=== PATIENT | male | born 1950 | race Caucasian/White ===

== ENCOUNTER 2016-08-13 08:29 | Inpatient (IN) ==
--- NOTE | 2016-08-13 08:47 | Anesthesia Evaluation PreOp ---
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 Other Medical History: Diabetes Type II Anesthesia History: No Prior Anesthetic Complications, Past Anesthesia (07/31/16 - Iliac revascularization with stent) Alcohol Use: occasionally Drug use: none Medications and Allergies Amlodipine [Norvasc] 5 mg PO DAILY 01/12/16 [History] Clopidogrel [Plavix] 75 mg PO DAILY 01/12/16 [History] GlipiZIDE [Glucotrol] 5 mg PO BIDWM 01/12/16 [History] Isosorbide MONOnitrate (24 HR) [Imdur] 90 mg PO DAILY 01/12/16 [History] Lisinopril [Zestril] 5 mg PO DAILY 01/12/16 [History] Nitroglycerin [Nitrostat] 0.4 mg SL Q5M PRN 01/12/16 [History] Pantoprazole Sodium [Protonix] 40 mg PO DAILY 01/12/16 [History] Rosuvastatin [Crestor] 30 mg PO DAILY 01/12/16 [History] Aspirin 81 mg PO DAILY 07/31/16 [History] Loratadine [Allergy Relief] 10 mg PO DAILY 07/31/16 [History] Metformin HCl [Glucophage] 1,000 mg PO BID 08/13/16 [History] Allergies No Known Allergies Allergy (Verified 08/13/16 08:54) - Meds/Allergy Pre-op Review Medications Reviewed: Yes Allergies Reviewed: Yes Beta Blockers on Current Med List: Yes If Beta Blockers taken, Date/Time (Last Dose taken): 06:30 08/13/2016 Anesthesia Results - Labs Laboratory Tests 07/25/16 07/25/16 07/25/16 11:00 11:00 11:00 WBC 9.9 Hgb 12.8 L Hct 38.8 Plt Count 421 H INR 1.3 Sodium 135 L Potassium 4.2 Chloride 101 Carbon Dioxide 25 BUN 9 Creatinine 0.81 Echo 01/13/16 EF - 60% Mod LV diastolic dysfunction No sig. Valvular dx No pulm. HTN - Imaging EKG: image reviewed (SR with occ. ectopic premature complexes) Anesthesia Exam O2 Sat Height 1.63 m Height 1.63 m Weight 72.121 kg Weight 72.121 kg O2 Sat by Pulse Oximetry 99 O2 Sat by Pulse Oximetry 99 Vital Signs Temp Pulse Resp BP Pulse Ox 98.2 F 64 18 118/66 99 08/13/16 09:36 08/13/16 09:36 08/13/16 09:36 08/13/16 09:36 08/13/16 09:36 Height: 5'4'' Weight: 159# NPO (# of Hours): > 8 hrs Pain Scale: 0 Pain Scale Used: Numeric (1 - 10) - HEENT Pupil (Motor): Pupils equal, EOMI Mallampati: II Teeth: Edentulous Denture Type: Upper: Complete, Lower: Complete Oral Opening: Greater than 3 - STOCK PREPARATION OPERATOR LOC: Oriented STOCK PREPARATION OPERATOR Motor: Normal RUE, Normal LUE, Normal RLE, Normal LLE, Normal Face STOCK PREPARATION OPERATOR Sensory: Normal: RUE, LUE, RLE, LLE, Face - Cardiac Rhythm: Regular Murmur: None JVD: No Carotid Bruit: No - Pulmonary Breath Sounds: bilateral Clear Respiratory Effort: Symmetrical Anesthesia Assess/Plan ASA Score: 3 Modified [place] Scale for Level of Consciousness: Cooperative, oriented, and tranquil Anesthetic Plan: General Autologous Blood: Yes Monitoring Plan: Standard Monitors, A-Line Recovery Plan: PACU
[2016-08-13] MEDS ORDERED: *HR* FentaNYL (PF) 100 MCG/2 ML VIAL ONE (09:23)
[2016-08-13] MEDS ORDERED: *HR* Propofol 200 MG/20 ML VIAL IVP ONE (09:23)
[2016-08-13] MEDS ORDERED: *HR* Midazolam HCl 2 MG/2 ML VIAL ONE (09:23)
[2016-08-13] MEDS ORDERED: Lidocaine -MPF 2% 2 ML VIAL ONE (09:24)
[2016-08-13] MEDS ORDERED: *HR* Remifentanil 2 MG VIAL IVP ONE ×2 (09:24→13:31)
[2016-08-13] MEDS ORDERED: EPHEDrine 50 MG/ML VIAL ONE (09:24)
[2016-08-13] MEDS ORDERED: Albuterol 2.5 MG/3 ML NEBULIZER IH ONE (09:27)
[2016-08-13] MEDS ORDERED: Lidocaine -MPF 1% 2 ML VIAL ID ONE (09:27)
[2016-08-13] MEDS ORDERED: CeFAZolin Pre 2,000 MG/100 ML 2,000 MG/100 ML BAG IVPB ONE (09:27)
[2016-08-13] MEDS ORDERED: Albuterol 2.5 MG/3 ML NEBULIZER ONE (09:32)
[2016-08-13] MEDS: Ringers Solution, Lactated 1,000 ML IVC SCH ×2 (09:35→15:39)
[2016-08-13] MEDS ORDERED: Heparin 1,000 UNITS/500 mL NS 500 ML ONE (10:27)
[2016-08-13] MEDS ORDERED: Heparin 1,000 UNITS/500 mL NS 1,500 ML ONE (10:48)
--- NOTE | 2016-08-13 10:51 | History & Physical Report ---
Date of Encounter: 08/13/16 Time of Encounter: 10:51 24 Hour HP Update - Instructions Instructions: If the History and Physical is less than 30 days old and was completed prior to A.M. admission and or procedure and has NOT been updated on calendar day of procedure please complete this update prior to performing procedure. - Update Patient reports changes in Medical Condition: No Changes in examination, assessment, or condition: No Changes in Medication: No Preop tests/diagnostics Reviewed: Yes Surgery Remains Indicated: Yes Consent for Planned Operative Procedure(s) Verified: Yes - Pre-Operative Checklist Preoperative Checklist Indicated: Yes Prophylactic Antibiotic Ordered: Yes Home Medications Include Beta Gabriela: No Beta Gabriela Taken Today (Day of Surgery): No Beta Gabriela Taken Yesterday (Day Prior to Surgery): No Is VTE Prophylaxis Indicated?: Yes
[2016-08-13] MEDS ORDERED: Lidocaine Jelly 6 ml Syringe ONE (11:29)
[2016-08-13] MEDS ORDERED: *HR* Heparin 5,000 UNIT/ML VIAL ONE ×2 (12:10→13:01)
[2016-08-13] MEDS ORDERED: Lidocaine -MPF 4% 5 ML AMPUL ONE (13:35)
[2016-08-13] MEDS ORDERED: Neostigmine Methylsulfate 3 MG/3 ML SYRINGE ONE (14:34)
[2016-08-13] MEDS ORDERED: Ondansetron 4 MG/2 ML VIAL ONE (14:37)
[2016-08-13] MEDS ORDERED: Dexamethasone 4 MG/ML VIAL ONE (14:37)
--- NOTE | 2016-08-13 14:46 | Operative Note ---
Date of procedure: 08/13/16 Pre-op diagnosis: pad/claudication Post-op diagnosis: same Procedure: left iliofemoral endarterectomy with Hemashield patch angioplasty left SFA balloon angioplasty with 5 x 150 mm balloon Complications: none Anesthesia: GETA Surgeon: Bunny Dietrich Estimated blood loss (cc): 250 Specimen: none Condition: stable Disposition: PACU Procedure in Detail: History Juan Khan is a 66-year-old white male who complained of bilateral lower extremity pain. [facility] He was found to have abnormal noninvasive testing. He then went on to have an angiogram approximately 2 weeks ago. This demonstrated severe bilateral common iliac artery disease and a near occlusive plaque in the left common femoral artery. In addition there was stenosis in the left superficial femoral artery. The iliac artery disease was successfully stented with rheumatic improvement of his right lower extremity symptoms. He now comes to the operating room for correction of the left common femoral artery lesion and to perform a balloon angioplasty of the superficial femoral artery. Procedure After informed consent was obtained the patient was taken to the operating room. General endotracheal anesthesia was established. The left lower extremity was then sterilely prepped and draped. A timeout protocol was observed. An oblique incision was made in the left groin. Dissection was carried down to reveal the common femoral artery as well as the femoral artery bifurcation and the inguinal ligament. The vessel was extremely thick and dense and affected with calcific-like plaque. Controls obtained of all the vessels. Heparin was administered intravenously and a dose of 5000 units. After a three-minute delay the vessels were clamped and 11 blade knife and Muñoz scissors were used to open the common femoral artery on its anterior border. This was continued distally onto the proximal 1-2 cm of the superficial femoral artery. It was extended proximally to the level of the inguinal ligament. The plaque encountered was a very dramatic thick dense calcific material. There is very little lumen present. A formal endarterectomy was then performed of the entire length of the common femoral artery. The endarterectomy was carried proximally up into the external iliac artery. A large mass of atherosclerotic material was removed with significant improvement in the pulsatile flow through the vessel from an inflow perspective. Attention was then directed distally. The orifice of the profunda femoris artery was endarterectomized. Excellent backbleeding was noted. The endarterectomy was then carried distally onto the superficial femoral artery. Back bleeding was noticed here as well. The bed of the vessels and inspected for any residual debris. A patch angioplasty was then performed in order to reconstruct the common femoral artery and proximal superficial femoral artery. A Hemashield patch was used and was sewn in position using 2 6- 0 Prolene sutures. The Vesseloops were slowly loosened and the area was checked for hemostasis. After this was achieved attention was directed to the superficial femoral artery lesion. An 18-gauge needle was then used to puncture the common femoral artery through the area of the patch. A guidewire was then inserted and the needle removed. A 5.5 cm long 6 Chinese sheath was advanced over the wire into the proximal superficial femoral artery. The sheath was aspirated and flushed with heparinized saline very an angiogram was then performed demonstrating calcific lesions in the distal superficial femoral artery near the adductor canal. A Glidewire was then inserted and under fluoroscopic control wasn't was able to be advanced over the supporting catheter of a 40 cm long burn catheter and through the lesion into the popliteal artery. An additional dose of heparin was given at this time. A 5 x 150 mm balloon was selected. It was inserted into the superficial femoral artery and inflated under fluoroscopic control. After 2 minutes inflation at 12 sherry the balloon was deflated. A completion anterior was then performed which showed a widely patent superficial femoral artery. No stent was necessary. The flow appeared to be unimpeded. The area again was flushed with upper and I saline. The 6 Chinese sheath was removed and the puncture site was closed with 6-0 Prolene suture. The wound was then irrigated and hemostasis achieved. Doppler signals were identified at the cells pedis and posterior tibial artery at the ankle. The wound was then closed in layers using 2-0 and 3-0 and 4-0 Vicryl sutures. There were no intraoperative complications. The patient tolerated the procedure well. There were no specimens. The patient was extubated in the operating room and taken to the recovery room in stable condition.
--- NOTE | 2016-08-13 16:01 | Anesthesia Evaluation Post Op ---
Date of Encounter: 08/13/16 Time of Encounter: 16:00 - Vital Signs Vital Signs: Vital Signs/O2 Sat, Most Current Temp Pulse Resp BP Pulse Ox 99.0 F 63 14 114/60 100 08/13/16 15:51 08/13/16 15:51 08/13/16 15:51 08/13/16 15:51 08/13/16 15:51 - Lungs Lungs: Clear Ascult./Percussion - Airway Airway: Non-obstructed - Cardiovascular Regular Rate - Mental Status Mental Status: Alert & Oriented, Answers Appropriately - Pain Pain Scale: 0 Pain Scale used: Numeric (1 - 10) - Nausea Vomiting Nausea Vomiting: Not Present - Hydration Hydration: Ice chips, Wang catheter - Discharge PostOp Status: Transfer Patient to floor
[2016-08-13] MEDS ORDERED: Ondansetron 4 MG/2 ML VIAL IVP PRN (16:23)
[2016-08-13] MEDS ORDERED: Acetaminophen 325 MG TABLET PO PRN (16:23)
[2016-08-13] MEDS ORDERED: Naloxone 0.4 MG/ML INJ IVP PRN (16:23)
[2016-08-13] MEDS ORDERED: *HR* Morphine 2 MG/ML SYRINGE IVP PRN (16:23)
[2016-08-13] MEDS ORDERED: *HR* Morphine 2 MG/ML SYRINGE ONE (16:36)
[2016-08-13] MEDS: *HR* HYDROcodone/Acet 5/325 mg TABLET PO PRN (17:33)
[2016-08-13] MEDS: *HR* GlipiZIDE 5 MG TABLET PO SCH (17:34)
[2016-08-13] MEDS: ceFAZolin 2,000 MG in D5% in Water 100 ML IVPB SCH (18:15)
[2016-08-14] MEDS: ceFAZolin 2,000 MG in D5% in Water 100 ML IVPB SCH ×2 (03:52→10:47)
[2016-08-14 04:31] VITALS: BP 128/68
[2016-08-14 04:41] LABS: Basophils % 0.2 %; Hematocrit 26.5 % (37.5-50.1); Hemoglobin 9.2 g/dL (12.9-16.9); Immature Granulocytes % 0.5 % (0-4); Lymphocytes # 1.2 K/mcL (0.6-4.6); Lymphocytes % 11.8 %; Mean Corpuscular HGB Conc 34.7 g/dL (31.6-35.5); Mean Corpuscular Volume 80.8 fL (83.0-100.0); Mean Platelet Volume 9.8 fL (9.4-12.4); Monocytes # 0.3 K/mcL (0.0-1.3); Monocytes % 3.3 %; Neutrophils # 8.5 K/mcL (1.6-8.9); Platelet Count 376 K/mcL (140-400); Red Blood Count 3.28 M/mcL (4.19-5.50); Red Cell Distribution Width 14.4 % (11.5-14.5); Segmented Neutrophils % 84.2 %
[2016-08-14 05:07] LABS: BUN/Creatinine Ratio 15 (6-26); Blood Urea Nitrogen 12 mg/dL (8-26); Calcium 8.8 mg/dL (8.6-10.8); Carbon Dioxide 20 mEq/L (19-29); Chloride 98 mEq/L (98-109); Glucose 182 mg/dL (70-99); Osmolality,Calculated 274 (280-300); Potassium 4.4 mEq/L (3.5-4.5); Sodium 130 mEq/L (136-145); eGFR For African Americans > 60 (> 60); eGFR For Non-African Americans > 60 (> 60)
[2016-08-14] MEDS: *HR* HYDROcodone/Acet 5/325 mg TABLET PO PRN (07:51)
[2016-08-14] MEDS: *HR* GlipiZIDE 5 MG TABLET PO SCH (07:52)
--- NOTE | 2016-08-14 08:18 | Discharge Summary ---
Date of Encounter: 08/14/16 Time of Encounter: 08:13 - Discharge Diagnosis (1) PAD (peripheral artery disease) Priority: Primary Status: Acute Comments: Significant bilateral iliac and left Iliofemoral and SFA disease S/p bilateral common iliac stent angioplasty 2 weeks ago. 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 Pt underwent left Iliofemoral endarterectomy and left SFA balloon angioplasty without incident. Uneventful recovery overnight. Improved perfusion to left leg post op. (2) Type 2 diabetes mellitus Priority: Secondary Status: Chronic Comments: pt under custodial medical therapy for DM Qualifiers: Diabetes mellitus complication status: with circulatory complication Diabetes mellitus complication detail: with peripheral angiopathy without gangrene Diabetes mellitus custodial insulin use: without custodial use Qualified Code(s): E11.51 - Type 2 diabetes mellitus with diabetic peripheral angiopathy without gangrene (3) Hypertension Priority: Secondary Status: Chronic Comments: HTN under medical control. Qualifiers: Hypertension type: essential hypertension Qualified Code(s): I10 - Essential (primary) hypertension - Discharge Medications Prescriptions: HYDROcodone/Acet 5/325 mg [[place] 5-325 mg] 1 tab PO Q6HR PRN #14 tablet PRN Reason: Moderate Pain Home Medications: Amlodipine [Norvasc] 5 mg PO DAILY 01/12/16 [History] Clopidogrel [Plavix] 75 mg PO DAILY 01/12/16 [History] GlipiZIDE [Glucotrol] 5 mg PO BIDWM 01/12/16 [History] Isosorbide MONOnitrate (24 HR) [Imdur] 90 mg PO DAILY 01/12/16 [History] Lisinopril [Zestril] 5 mg PO DAILY 01/12/16 [History] Nitroglycerin [Nitrostat] 0.4 mg SL Q5M PRN 01/12/16 [History] Pantoprazole Sodium [Protonix] 40 mg PO DAILY 01/12/16 [History] Rosuvastatin [Crestor] 30 mg PO DAILY 01/12/16 [History] Aspirin 81 mg PO DAILY 07/31/16 [History] Loratadine [Allergy Relief] 10 mg PO DAILY 07/31/16 [History] Metformin HCl [Glucophage] 1,000 mg PO BID 08/13/16 [History] HYDROcodone/Acet 5/325 mg [[place] 5-325 mg] 1 tab PO Q6HR PRN #14 tablet [Rx] Allergies/Adverse Reactions: Allergies No Known Allergies Allergy (Verified 08/13/16 08:54) Date of admission: 08/13/16 16:22 Primary care physician: PCP LEONORA Consults: none Procedure(s) Performed: left Iliofemoral endarterectomy with patch angioplasty and left SFA balloon angioplasty Discharging clinician: Bunny Dietrich Anticipated date of discharge: 08/14/16 - Patient Status Disposition: Home, Self-Care Condition: Good Functional capacity at discharge: independent ambulation Overall status at discharge: patient is progressing back to baseline - Discharge Instructions Follow Up With: LEONORAPCP [Primary Care Provider] - 08/20/16 5:00 pm Bunny Dietrich MD [Partnered Physician] - 08/28/16 9:30 am Additional Instructions: Keep left groin incision dry for total of 5 days following surgery. No automobile driving, lifting greater than 10 pounds, or manual labor until seen in the clinic in postoperative follow-up. Resume usual home medications. Patient is encouraged to walk both inside and outside. Patient may use stairs when necessary. Patient may sleep in any position that is comfortable for him. - Diet and Activity Activity: increase activity as tolerated Diet: diabetic diet - Hospital Course Hospital course: Mr. Khan is a 66 year old male With severe PAD. He had undergone an angiogram that demonstrated bilateral common iliac artery lesions that required stenting angioplasty. This occurred about 2 weeks ago. He was identified as having a near occlusive lesion in the left common femoral artery and a calcific lesion in the left superficial femoral artery. He was admitted now to address the common femoral artery as this was in appropriate for treatment as an endovascular lesion. At the same time that the endarterectomy of the left common femoral artery was performed a instrument balloon angioplasty was performed of the left superficial femoral artery lesion. The patient tolerated these procedures well. He had no periprocedural complications. Postoperatively he had excellent Doppler signals at the ankle. His left foot was warm and pink. The left groin incision was clean and dry and healing well. He was felt fit for discharge on the afternoon of postoperative day #1. Instructions in regards to his diet medications and wound care as well as his medications was provided to the patient prior to discharge. - Time Spent with Patient Total time spent providing and/or coordinating discharge services: Exam Vital Signs, Last 4 Hours Temp Pulse Resp BP Pulse Ox 08/14/16 07:45 98.3 F 79 16 128/68 96 08/14/16 04:23 98.3 F 79 16 128/68 96 General: Present: Conversant, No Apparent Distress HEENT: Present: Atraumatic, Normocephaly Neck: Absent: JVD Cardiac: Present: Reg Rate and Rhythm Neuro: Present: Alert and responsive, No focal deficits noted Abdomen: Present: Soft, Non-tender Vascular: Present: Normal capillary refill, Color/Temperature (Left foot is warm and pink), Surgical incisions (Clean and dry), Other (Patient has excellent Doppler signals 3 at the left ankle.) - VTE Documentation of Mechanical Device: Intermittent pneumatic compression device
[2016-08-14] MEDS ORDERED: amLODIPine 5 MG TABLET PO SCH (09:00)
[2016-08-14] MEDS ORDERED: Aspirin 81 MG TAB.CHEW PO SCH (09:00)
[2016-08-14] MEDS ORDERED: Loratadine 10 MG TABLET PO SCH (09:00)
[2016-08-14] MEDS ORDERED: Isosorbide MONOnitrate (24 HR) 30 MG TAB.ER.24H PO SCH (09:00)
== END 2016-08-14 17:30 | disposition home or self-care (01) | DRG 272 ==
LOC: SAMDAY 08:29 → 2NNU 16:22
PROVIDERS: ADMIT Surgery Vascular Surgery; ATTEND Surgery Vascular Surgery

== ENCOUNTER 2017-07-01 10:01 | Inpatient (IN) ==
[~2017-07-01 10:01] MED LIST: ceFAZolin 1,000 MG, Sodium Chloride IRRigation 1,000 ML IR ONE
[2017-07-01] MEDS ORDERED: CeFAZolin Syr 2,000MG/20 ML 2,000 MG/20 ML SYRINGE IVPB ONE (10:15)
[2017-07-01] MEDS ORDERED: Albuterol 2.5 MG/3 ML NEBULIZER IH ONE (10:17)
[2017-07-01] MEDS ORDERED: Albuterol 2.5 MG/3 ML NEBULIZER ONE (10:19)
[2017-07-01] MEDS ORDERED: Dexamethasone 4 MG/ML VIAL ONE (10:25)
[2017-07-01] MEDS ORDERED: *HR* Rocuronium Bromide 50 MG/5 ML VIAL ONE (10:25)
[2017-07-01] MEDS ORDERED: Lidocaine -MPF 2% 2 ML VIAL ONE (10:25)
[2017-07-01] MEDS ORDERED: Ondansetron 4 MG/2 ML VIAL ONE (10:25)
[2017-07-01] MEDS ORDERED: *HR* Phenylephrine 10 MG/ML VIAL ONE (10:26)
[2017-07-01] MEDS ORDERED: *HR* Propofol 200 MG/20 ML VIAL IVP ONE (10:26)
[2017-07-01] MEDS ORDERED: *HR* FentaNYL (PF) 100 MCG/2 ML VIAL ONE (10:27)
[2017-07-01] MEDS ORDERED: Acetaminophen IV 1,000 MG/100 ML INFUS..BTL IVPB ONE (10:28)
--- NOTE | 2017-07-01 10:29 | Anesthesia Evaluation PreOp ---
Date of Encounter: 07/01/17 Time of Encounter: 10:27 - Past History Planned Operation: R femoral endarterectomy Cardiac History: HTN, Hyperlipidemia, Cardiac Surgery (CAD s/p CABG), Cardiac Stent (x2), Other (PAD ECHO 2016 Impressions: LVEF 60%. Normal left ventricular size and systolic function. There is evidence of moderate diastolic dysfunction of the left ventricle. Moderately enlarged left atrial size. Normal right ventricular size and function. No significant valvular dysfunction. No pulmonary hypertension. 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 Other Medical History: Diabetes Type II Anesthesia History: No Prior Anesthetic Complications, Past Anesthesia (CABG, L ilio femoral endarterectomy) Alcohol Use: occasionally Drug use: none Medications and Allergies Clopidogrel [Plavix] 75 mg PO DAILY 01/12/16 [History] Isosorbide MONOnitrate (24 HR) [Imdur] 90 mg PO DAILY 01/12/16 [History] Lisinopril [Zestril] 5 mg PO DAILY 01/12/16 [History] Nitroglycerin [Nitrostat] 0.4 mg SL Q5M PRN 01/12/16 [History] Pantoprazole Sodium [Protonix] 40 mg PO DAILY 01/12/16 [History] Rosuvastatin [Crestor] 30 mg PO DAILY 01/12/16 [History] amLODIPine [Norvasc] 5 mg PO DAILY 01/12/16 [History] glipiZIDE [Glucotrol] 5 mg PO BIDWM 01/12/16 [History] Aspirin 81 mg PO DAILY 07/31/16 [History] Loratadine [Allergy Relief] 10 mg PO DAILY 07/31/16 [History] Metformin HCl [Glucophage] 1,000 mg PO BID 08/13/16 [History] Atenolol [Tenormin] 25 mg PO BID 06/18/17 [History] 3 Allergy/AdvReac Type Severity Reaction Status Date / Time No Known Allergies Allergy Verified 07/01/17 10:33 - Meds/Allergy Pre-op Review Medications Reviewed: Yes Allergies Reviewed: Yes Beta Blockers on Current Med List: No Anesthesia Results - Labs Laboratory Tests 06/05/17 06/05/17 06/05/17 08:19 08:19 08:19 WBC 8.7 Hgb 12.7 L Hct 37.5 Plt Count 457 H PT 13.2 H INR 1.2 APTT 30.7 Sodium 127 L Potassium 4.0 Chloride 97 L Carbon Dioxide 25 BUN 10 Creatinine 0.78 Glucose 144 H - Imaging EKG: report reviewed (nterpretive Statements SINUS RHYTHM WITH OCCASIONAL VENTRICULAR PREMATURE COMPLEXES MODERATE INTRAVENTRICULAR CONDUCTION DELAY ST DEVIATION AND MODERATE T-WAVE ABNORMALITY, CONSIDER LATERAL ISCHEMIA ST DEVIATION AND MODERATE T-WAVE ABNORMALITY, CONSIDER INFERIOR ISCHEMIA Electronically Signed On 06-06-2017 13:42:46 EST by Michael Coon) Anesthesia Exam O2 Sat Height 1.63 m Height 1.63 m Weight 72.575 kg Weight 72.575 kg O2 Sat by Pulse Oximetry 99 Vital Signs Temp Pulse Resp BP Pulse Ox 97.8 F 65 18 144/70 99 07/01/17 10:18 07/01/17 10:18 07/01/17 10:18 07/01/17 10:18 07/01/17 10:18 Height: 1.63m Weight: 72kg NPO (# of Hours): >8 Pain Scale: 0 Pain Scale Used: Numeric (1 - 10) - HEENT Pupil (Motor): Pupils equal, EOMI Teeth: Normal Oral Opening: Greater than 3 - TRUCK DRIVER HELPER LOC: Oriented TRUCK DRIVER HELPER Motor: Normal RUE, Normal LUE, Normal RLE, Normal LLE, Normal Face TRUCK DRIVER HELPER Sensory: Normal: RUE, LUE, RLE, LLE, Face - Cardiac Rhythm: Regular - Pulmonary Breath Sounds: bilateral Clear Respiratory Effort: Symmetrical Anesthesia Assess/Plan ASA Score: 3 (PAD, CAD s/p CABG, HTN, DM, smoker) Modified Alex Scale for Level of Consciousness: Cooperative, oriented, and tranquil Anesthetic Plan: General Monitoring Plan: Standard Monitors, A-Line Recovery Plan: PACU
[2017-07-01] MEDS ORDERED: Ringers Solution, Lactated 1,000 ML IVC SCH (10:30)
[2017-07-01] MEDS ORDERED: Heparin 1,000 UNITS/500 mL 500 ML ONE (12:43)
--- NOTE | 2017-07-01 12:50 | History & Physical Report ---
Date of Encounter: 07/01/17 Time of Encounter: 12:49 24 Hour HP Update - Instructions Instructions: If the History and Physical is less than 30 days old and was completed prior to A.M. admission and or procedure and has NOT been updated on calendar day of procedure please complete this update prior to performing procedure. - Update Patient reports changes in Medical Condition: No Changes in examination, assessment, or condition: No Changes in Medication: No Preop tests/diagnostics Reviewed: Yes Surgery Remains Indicated: Yes Consent for Planned Operative Procedure(s) Verified: Yes - Pre-Operative Checklist Preoperative Checklist Indicated: Yes Prophylactic Antibiotic Ordered: Yes Home Medications Include Beta Gabriela: Yes Beta Gabriela Taken Today (Day of Surgery): Yes Beta Gabriela Taken Yesterday (Day Prior to Surgery): Yes Is VTE Prophylaxis Indicated?: Yes
[2017-07-01] MEDS ORDERED: *HR* Remifentanil 2 MG VIAL IVP ONE (12:55)
[2017-07-01] MEDS ORDERED: Heparin 1,000 UNITS/500 mL 1,000 ML ONE (13:00)
[2017-07-01] MEDS ORDERED: Lidocaine Jelly 6ml 1 APPL/6 ML JEL.PF.APP ONE ×2 (13:52→13:55)
[2017-07-01] MEDS ORDERED: EPHEDrine 50 MG/ML VIAL ONE (13:54)
[2017-07-01] MEDS ORDERED: Ondansetron 4 MG/2 ML VIAL IVP ONE (14:31)
[2017-07-01] MEDS ORDERED: *HR* OxyCODONE Immed Rel 5 MG TABLET PO PRN ×2 (14:31→19:10)
[2017-07-01] MEDS ORDERED: *HR* Promethazine 25 MG/ML VIAL IVP PRN (14:31)
[2017-07-01] MEDS ORDERED: *HR* Heparin 5,000 UNIT/ML VIAL ONE ×2 (14:40→16:49)
--- NOTE | 2017-07-01 14:58 | Anesthesia Procedures ---
Date of Encounter: 07/01/17 Time of Encounter: 13:40 Procedures: Anesthesia - Arterial Line Consent obtained: verbal consent Time out performed: Yes Size (Gauge): 20 Length (inches): 1 3/4 Technique Used: sterile prep Post-Procedure: dry sterile dressing placed Patient tolerated procedure: well, no complications Complications: none Site: Radial R Vitals: see OR record
[2017-07-01] MEDS ORDERED: *HR* PHENYLEPHRINE 1,000 MCG/10 ML SYRINGE IVP ONE (17:00)
--- NOTE | 2017-07-01 17:49 | Operative Note ---
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 Khan is a 67-year-old white male with multiple vascular risk factors. He has known severe peripheral vascular occlusive disease. He is status post bilateral common iliac artery stent angioplasties in 2017. He also had a left iliofemoral thrombectomy with patch angioplasty in 2017. He now reports to the clinic with increasing right lower extremity symptoms. Angiography reveals a critical lesion of the right common femoral artery. This could not be treated via an endovascular approach and so therefore he now comes to the operating room. Procedure After informed consent was obtained the patient was taken to the operating room. General endotracheal anesthesia was established. The abdomen and groin and upper thigh were sterilely prepped and draped. A timeout protocol was observed. An oblique incision was made in the right groin. Dissection was carried down to the common femoral artery and femoral bifurcation. The extent of the dissection proximally was up to the level of the inguinal ligament and the very distal aspect of the external iliac artery. Control was obtained of these vessels and then heparin was administered. After 3 minutes in length and arteriotomy was made on the anterior surface of the common femoral artery. The entire length of the common femoral artery was opened and a very long endarterectomy was then performed. The plaque was a very complex dense calcific plaque focused on the posterior aspect of the artery creating a critical stenosis of greater than 95% at the distal aspect of the common femoral artery. After a long endarterectomy was performed in the orifice of the superficial femoral and profunda femoris artery endarterectomized the bed of the vessel was inspected for any residual debris. A Hemashield patch angioplasty was then performed. After appropriate backbleeding and flushing the arteries were opened. Pulsatile flow was then restored through the endarterectomized vessel and into the common femoral artery. However, on evaluation of the profunda femoris artery even though the orifice had been clearly endarterectomized there was minimal to no flow. Therefore a second incision was then made on the lateral border of the sartorius muscle and carried down to the femoral bifurcation to expose the profunda femoris artery. This artery was densely calcified in the region of pulse or Doppler signal on the orifice of the vessel. Therefore selective control was then made of the profunda femoris artery proximally at its takeoff and then distally beyond its branches by the profunda vein. The patient was given an additional dose of heparin and then an arteriotomy was made on the profunda femoris artery directly. Evaluation here demonstrated thick calcific plaque. This was then endarterectomized and then the vessel was now opened. A patch angioplasty using Hemashield was then performed over this endarterectomized profunda femoris artery. After appropriate backbleeding and flushing this vessel was then opened and then pulsatile flow was restored into both femoral vessels. Both incisions were then irrigated. Hemostasis was achieved. Marcaine was infiltrated into the skin edges. The wounds were then closed in layers using absorbable suture. Dry sterile dressings were applied. The patient was extubated in the operating room. He was taken from the operating room to the recovery room in stable condition. Doppler signals were identified over the dorsalis pedis and posterior tibial artery at the right ankle.
[2017-07-01] MEDS: MORPHINE SUL Oral CONC 10 MG/0.5 ML ORAL.SYG SL PRN ×2 (18:36→18:46)
--- NOTE | 2017-07-01 18:55 | Anesthesia Evaluation Post Op ---
Date of Encounter: 07/01/17 Time of Encounter: 18:54 - Vital Signs Vital Signs: Vital Signs/O2 Sat, Most Current Temp Pulse Resp BP Pulse Ox 97.0 F L 69 18 117/59 100 07/01/17 18:26 07/01/17 18:46 07/01/17 18:46 07/01/17 18:46 07/01/17 18:46 - Lungs Lungs: Clear Ascult./Percussion - Airway Airway: Non-obstructed - Cardiovascular Regular Rate - Mental Status Mental Status: Alert & Oriented, Answers Appropriately - Pain Pain Scale: 2 Pain Scale used: Numeric (1 - 10) - Nausea Vomiting Nausea Vomiting: Not Present - Hydration Hydration: NPO, Wang catheter - Discharge PostOp Status: Transfer Patient to floor
[2017-07-01] MEDS ORDERED: Nitroglycerin 0.4 MG TAB.SUBL SL PRN (19:10)
[2017-07-01] MEDS ORDERED: Ondansetron 4 MG/2 ML VIAL IVP PRN (19:10)
[2017-07-01] MEDS ORDERED: *HR* HYDROcodone/Acet 5/325 mg TABLET PO PRN (19:10)
[2017-07-01] MEDS ORDERED: Naloxone 0.4 MG/ML INJ IVP PRN (19:10)
[2017-07-01] MEDS ORDERED: Acetaminophen 325 MG TABLET PO PRN (19:10)
[2017-07-01] MEDS: *HR* Metformin 500 MG TABLET PO SCH (20:22)
[2017-07-01] MEDS: CeFAZolin Premix DUPLEX 2,000 MG/50 ML BAG IVPB SCH (23:10)
[2017-07-02 05:00] LABS: BUN/Creatinine Ratio 13 (6-26); Blood Urea Nitrogen 11 mg/dL (8-23); Calcium 8.6 mg/dL (8.6-10.3); Carbon Dioxide 21 mEq/L (23-29); Chloride 104 mEq/L (98-107); Glucose 164 mg/dL (70-105); Osmolality,Calculated 275 (280-300); Potassium 4.9 mEq/L (3.5-5.1); Sodium 131 mEq/L (136-145); eGFR For Non-African Americans > 60 (> 60)
[2017-07-02 05:01] LABS: Basophils # 0.1 K/mcL (0.0-0.2); Basophils % 0.4 %; Hematocrit 31.4 % (37.5-50.1); Hemoglobin 10.6 g/dL (12.9-16.9); Immature Granulocytes % 0.4 % (0-4); Lymphocytes % 16.5 %; Mean Corpuscular HGB Conc 33.8 g/dL (31.6-35.5); Mean Corpuscular Hemoglobin 28.2 pg (28.0-33.3); Mean Corpuscular Volume 83.5 fL (83.0-100.0); Monocytes # 0.6 K/mcL (0.0-1.3); Monocytes % 4.8 %; Neutrophils # 9.6 K/mcL (1.6-8.9); Platelet Count 391 K/mcL (140-400); Red Blood Count 3.76 M/mcL (4.19-5.50); Red Cell Distribution Width 15.2 % (11.5-14.5); Segmented Neutrophils % 77.9 %
[2017-07-02] MEDS ORDERED: *HR* GlipiZIDE 5 MG TABLET PO SCH (08:00)
[2017-07-02] MEDS ORDERED: Loratadine 10 MG TABLET PO SCH (09:00)
[2017-07-02] MEDS ORDERED: Aspirin 81 MG TAB.CHEW PO SCH (09:00)
[2017-07-02] MEDS ORDERED: Multivit/Ca/Min/Fe/FA 1 TAB TABLET PO SCH (09:00)
[2017-07-02] MEDS ORDERED: Isosorbide MONOnitrate (24 HR) 30 MG TAB.ER.24H PO SCH (09:00)
[2017-07-02] MEDS ORDERED: amLODIPine 5 MG TABLET PO SCH (09:00)
[2017-07-02] MEDS: *HR* Metformin 500 MG TABLET PO SCH (09:01)
[2017-07-02] MEDS: CeFAZolin Premix DUPLEX 2,000 MG/50 ML BAG IVPB SCH (09:02)
[2017-07-02 11:25] VITALS: BP 112/63
--- NOTE | 2017-07-02 13:03 | Discharge Summary ---
Orders not resulted at time of discharge: Pending orders 06/30/17 11:49 Red Blood Cells [BBK] Routine Date of Encounter: 07/02/17 Time of Encounter: 13:01 - Discharge Diagnosis (1) Type 2 diabetes mellitus Priority: Secondary Status: Chronic Comments: Patient has long-standing diabetes under medical treatment. 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 transplanted heart: [place] heart Associated angina: without angina Qualified Code(s): I25.10 - Atherosclerotic heart disease of [place] coronary artery without angina pectoris (3) Hypertension Priority: Secondary Status: Chronic Comments: Patient is under medical treatment for long-standing hypertension Qualifiers: Hypertension type: essential hypertension Qualified Code(s): I10 - Essential (primary) hypertension (4) PAD (peripheral artery disease) Priority: Primary Status: Acute Comments: Patient had significant plaque formation in the right common femoral and right profunda femoris artery. - Hospital Course Hospital course: Mr. Khan is a 67 year old male Patient has significant PAD. He has had previous iliac stents and left iliofemoral endarterectomy. He now presents with symptomatically right lower extremity occlusive disease. He underwent a right common femoral artery and right profunda femoris artery endarterectomy with patch angioplasty. Patient had Doppler signals at the ankle and a warm right foot postoperatively. Patient was felt fit for discharge on postoperative day #1. Instructions regards to his diet and medications and wound care were reviewed with the patient prior to discharge. - Time Spent with Patient Total time spent providing and/or coordinating discharge services: - Discharge Medications Home Medications: Clopidogrel [Plavix] 75 mg PO DAILY 01/12/16 [History] Isosorbide MONOnitrate (24 HR) [Imdur] 90 mg PO DAILY 01/12/16 [History] Lisinopril [Zestril] 5 mg PO DAILY 01/12/16 [History] Nitroglycerin [Nitrostat] 0.4 mg SL Q5M PRN 01/12/16 [History] Pantoprazole Sodium [Protonix] 40 mg PO DAILY 01/12/16 [History] Rosuvastatin [Crestor] 30 mg PO HS 01/12/16 [History] amLODIPine [Norvasc] 5 mg PO DAILY 01/12/16 [History] glipiZIDE [Glucotrol] 5 mg PO BIDWM 01/12/16 [History] Aspirin 81 mg PO DAILY 07/31/16 [History] Metformin HCl [Glucophage] 1,000 mg PO BID 08/13/16 [History] Atenolol [Tenormin] 25 mg PO BID 06/18/17 [History] Albuterol Sulfate [Albuterol Inhaler] 2 puff IH TID PRN 07/01/17 [History] Cetirizine HCl [All Day Allergy] 10 mg PO DAILY 07/01/17 [History] Ferrous Sulfate 325 mg PO DAILY 07/01/17 [History] Multivitamin [One Daily Essential] 1 tab PO DAILY 07/01/17 [History] Allergies/Adverse Reactions: 3 Allergy/AdvReac Type Severity Reaction Status Date / Time No Known Allergies Allergy Verified 07/01/17 10:33 Date of admission: 07/01/17 18:58 [facility] care physician: [facility] Consults: None Procedure(s) Performed: Right common femoral artery endarterectomy with patch angioplasty and right profunda femoris artery endarterectomy with patch angioplasty Discharging clinician: Bunny Dietrich Anticipated date of discharge: 07/02/17 Exam Vital Signs, Last 4 Hours Temp Pulse Resp BP Pulse Ox 07/02/17 12:01 61 07/02/17 11:19 98.6 F 55 15 112/63 98 General: Present: Conversant, No Apparent Distress, Well developed, Well nourished HEENT: Present: Atraumatic, Normocephaly, Trachea midline Neck: Absent: JVD Cardiac: Present: Reg Rate and Rhythm Lungs: Present: Normal Breath Sounds Neuro: Present: Alert and responsive, Cranial nerves grossly intact Abdomen: Present: Soft, Non-tender. Absent: Masses Vascular: Present: Surgical incisions (Clean and dry), Other (Right foot is warm and pink. He has excellent biphasic to triphasic signals over the dorsalis pedis and posterior tibial arteries at the right ankle.) Skin: Present: No rashes noted on visualized skin Musculoskeletal: Present: No Chest Wall Tenderness - Patient Status Disposition: Home, Self-Care Condition: Good Functional capacity at discharge: independent ambulation Overall status at discharge: patient is progressing back to baseline - Discharge Instructions Follow Up With: LEONORA,PCP [Primary Care Provider] - 07/10/17 1:30 pm (THIS IS WITH THE DISCHARGE FOLLOW UP CL[facility] IN [facility] PLEASE FAX PAPER WORK OVER) Bunny Dietrich MD [Partnered Physician] - 07/16/17 2:30 pm Additional Instructions: Resume usual home medications Keep right groin incision area dry for 5 days following surgery No lifting greater than 10 pounds No automobile driving for 2 weeks No manual labor Follow-up with Dr. Dietrich in 2 weeks. - Diet and Activity Activity: increase activity as tolerated Diet: diabetic diet - VTE Documentation of Mechanical Device: Intermittent pneumatic compression device
== END 2017-07-02 17:01 | disposition home or self-care (01) | DRG 254 ==
LOC: SAMDAY 10:01 → 2NNU 18:58
PROVIDERS: ADMIT Surgery Vascular Surgery; ATTEND Surgery Vascular Surgery

== ENCOUNTER 2021-05-08 06:02 | Inpatient (IN) ==
[2021-05-08] MEDS ORDERED: Heparin 1,000 UNITS/500 mL 1,500 ML ONE (06:10)
[2021-05-08] MEDS ORDERED: Protamine Sulfate 50 MG/5 ML VIAL IVP ONE (06:11)
[2021-05-08] MEDS ORDERED: CeFAZolin Syr 2,000MG/20 ML 2,000 MG/20 ML SYRINGE IVPB ONE (06:22)
[2021-05-08] MEDS ORDERED: Ringers Solution, Lactated 1,000 ML IVC SCH ×2 (06:30→16:15)
[2021-05-08] MEDS ORDERED: *HR* Midazolam HCl 2 MG/2 ML VIAL ONE (06:53)
[2021-05-08] MEDS ORDERED: *HR* FentaNYL (PF) 100 MCG/2 ML VIAL ONE ×2 (06:53→10:18)
[2021-05-08] MEDS ORDERED: *HR* Propofol 200 MG/20 ML VIAL IVP ONE (06:53)
[2021-05-08] MEDS ORDERED: Heparin 1,000 UNITS/500 mL 0 ML ONE (06:56)
[2021-05-08] MEDS ORDERED: Ondansetron 4 MG/2 ML VIAL ONE (07:05)
[2021-05-08] MEDS ORDERED: Lidocaine -MPF 2% 5 ML VIAL ONE (07:05)
[2021-05-08] MEDS ORDERED: *HR* Rocuronium Bromide 50 MG/5 ML VIAL ONE ×3 (07:05→09:52)
[2021-05-08] MEDS ORDERED: Lidocaine HCL 4 ML Topical Solution (Laryng-O-Jet Kit Sterile Pak) TP ONE (07:05)
[2021-05-08] MEDS ORDERED: *HR* Phenylephrine 10 MG/ML VIAL ONE (07:05)
[2021-05-08] MEDS ORDERED: *HR* Heparin 5,000 UNIT/ML VIAL ONE (07:09)
[2021-05-08] MEDS ORDERED: Acetaminophen IV 1,000 MG/100 ML BAG IVPB ONE (07:17)
[2021-05-08] MEDS ORDERED: Albumin Human 5% 0 GM/0 ML IV.SOLN ONE (07:17)
[2021-05-08] MEDS ORDERED: *HR* Vasopressin 20 UNIT/ML VIAL ONE (07:17)
[2021-05-08] MEDS ORDERED: Ondansetron 4 MG/2 ML VIAL IVP PRN ×2 (07:22→15:43)
[2021-05-08] MEDS ORDERED: *HR* HYDROmorphone PF 0.5 MG/0.5 ML SYRINGE IVP PRN (07:22)
[2021-05-08] MEDS ORDERED: *HR* OxyCODONE Immed Rel 5 MG TABLET PO PRN (07:22)
[2021-05-08] MEDS ORDERED: EPHEDrine 50 MG/ML VIAL ONE ×2 (08:01→13:59)
[2021-05-08] MEDS ORDERED: Sugammadex Sodium 200 MG/2 ML VIAL IV ONE ×2 (11:29→11:56)
[2021-05-08] MEDS ORDERED: ceFAZolin 1,000 MG, Sodium Chloride IRRigation 1,000 ML IR ONE (11:40)
[2021-05-08 14:51] LABS: Hematocrit 25.2 % (37.5-50.1); Hemoglobin 8.7 g/dL (12.9-16.9); Mean Corpuscular HGB Conc 34.5 g/dL (31.6-35.5); Mean Corpuscular Hemoglobin 27.4 pg (28.0-33.3); Mean Corpuscular Volume 79.5 fL (83.0-100.0); Mean Platelet Volume 8.6 fL (9.4-12.4); Platelet Count 382 K/mcL (140-400); Red Blood Count 3.17 M/mcL (4.19-5.50); White Blood Count 9.7 K/mcL (4.3-11.1)
[2021-05-08 15:03] LABS: Alanine Aminotransferase 9 Units/L (7-52); Albumin 3.1 g/dL (3.5-5.7); Albumin/Globulin Ratio 1.5 (1.1-2.2); Alkaline Phosphatase 55 Units/L (34-104); Aspartate Amino Transferase 8 Units/L (13-39); BUN/Creatinine Ratio 18 (6-26); Bilirubin,Total 0.3 mg/dL (0.3-1.0); Blood Urea Nitrogen 13 mg/dL (8-23); Calcium 7.6 mg/dL (8.6-10.3); Carbon Dioxide 20 mEq/L (23-29); Chloride 101 mEq/L (98-107); Globulin 2.1 g/dL (2.4-3.5); Glucose 168 mg/dL (70-105); Osmolality,Calculated 264 (280-300); Potassium 4.5 mEq/L (3.5-5.1); Sodium 125 mEq/L (136-145); Total Protein 5.2 g/dL (6.4-8.9); eGFR For African Americans > 60 (> 60); eGFR For Non-African Americans > 60 (> 60)
[2021-05-08] MEDS ORDERED: Naloxone 0.4 MG/ML INJ IVP PRN (15:43)
[2021-05-08] MEDS ORDERED: Acetaminophen 325 MG TABLET PO PRN (15:43)
[2021-05-08] MEDS ORDERED: *HR* Labetalol 20 MG/4 ML SYRINGE IVP PRN (15:43)
[2021-05-08] MEDS ORDERED: Nitroglycerin 0.4 MG TAB.SUBL SL PRN (15:43)
[2021-05-08] MEDS ORDERED: 0.9 % Sodium Chloride 500 ML IV ONE (16:15)
[2021-05-08] MEDS: CeFAZolin 2 GM/120 ML BAG IVPB SCH (16:33)
[2021-05-08] MEDS: GlipiZIDE 5 MG TABLET PO SCH (16:42)
[2021-05-08 19:10] LABS: Hematocrit 23.6 % (37.5-50.1); Hemoglobin 7.9 g/dL (12.9-16.9)
[2021-05-08] MEDS: Albumin 25% 25gram/100mL 25 GM/100 ML IV.SOLN IVPB SCH ×2 (19:28→21:20)
[2021-05-08] MEDS: Ringers Solution, Lactated 1,000 ML IVC SCH (20:41)
[2021-05-08] MEDS: *HR* Metformin 500 MG TABLET PO SCH (20:41)
[2021-05-08] MEDS: atenoloL 25 MG TABLET PO SCH (20:42)
[2021-05-08] MEDS ORDERED: Albumin 25% 12.5gm/50mL 12.5 GM/50 ML IV.SOLN IVPB ONE (22:30)
[2021-05-09] MEDS: CeFAZolin 2 GM/120 ML BAG IVPB SCH ×2 (00:10→07:35)
[2021-05-09 00:43] LABS: Bacteria,Urine Few per hpf (None-Few); Bilirubin,Urine Negative (Negative); Blood,Urine Moderate (Negative); Clarity,Urine Clear (Clear); Color,Urine Colorless (Yellow); Glucose,Urine (UA) Normal (Normal); Ketones,Urine Negative (Negative); Leukocyte Esterase,Urine Negative (Negative); Nitrite,Urine Negative (Negative); PH,Urine 5.5 pH Units (5.0-8.0); Protein,Urine Negative (Neg-Trace); RBC,Urine 15-30 per hpf (0-3); Specific Gravity,Urine 1.005 (1.010-1.025); Urobilinogen,Urine Normal (Normal)
[2021-05-09] MEDS ORDERED: 0.9 % Sodium Chloride 250 ML IVC SCH (01:15)
[2021-05-09 01:47] LABS: Basophils % 0.3 %; Eosinophils # 0.4 K/mcL (0.0-0.6); Eosinophils % 3.3 %; Hematocrit 21.2 % (37.5-50.1); Hemoglobin 7.1 g/dL (12.9-16.9); Immature Granulocytes % 0.6 % (0-4); Lymphocytes # 1.5 K/mcL (0.6-4.6); Lymphocytes % 12.8 %; Mean Corpuscular HGB Conc 33.5 g/dL (31.6-35.5); Mean Corpuscular Hemoglobin 26.4 pg (28.0-33.3); Mean Corpuscular Volume 78.8 fL (83.0-100.0); Mean Platelet Volume 8.8 fL (9.4-12.4); Monocytes # 1.1 K/mcL (0.0-1.3); Monocytes % 9.2 %; Neutrophils # 8.7 K/mcL (1.6-8.9); Platelet Count 331 K/mcL (140-400); Red Blood Count 2.69 M/mcL (4.19-5.50); Red Cell Distribution Width 14.8 % (11.5-14.5); Segmented Neutrophils % 73.8 %; White Blood Count 11.8 K/mcL (4.3-11.1)
[2021-05-09 02:07] LABS: BUN/Creatinine Ratio 17 (6-26); Blood Urea Nitrogen 14 mg/dL (8-23); Calcium 8.2 mg/dL (8.6-10.3); Carbon Dioxide 21 mEq/L (23-29); Chloride 98 mEq/L (98-107); Glucose 177 mg/dL (70-105); Osmolality,Calculated 269 (280-300); Potassium 4.3 mEq/L (3.5-5.1); Sodium 127 mEq/L (136-145); eGFR For African Americans > 60 (> 60); eGFR For Non-African Americans > 60 (> 60)
[2021-05-09] MEDS ORDERED: Perflutren Lipid Microsphere 1.3 ML in 0.9 % Sodium Chloride 8.7 ML IVP PRN ×2 (06:15→10:53)
[2021-05-09] MEDS ORDERED: *HR* Heparin 5,000 UNIT/ML VIAL IVP PRN ×2 (06:38)
[2021-05-09] MEDS ORDERED: Heparin 25,000UNIT/250ML 1/2NS 25,000 UNIT/250 ML IV.SOLN IVC SCH (06:45)
[2021-05-09] MEDS: *HR* Metformin 500 MG TABLET PO SCH ×2 (07:34→20:44)
[2021-05-09] MEDS: GlipiZIDE 5 MG TABLET PO SCH ×2 (07:34→20:45)
[2021-05-09] MEDS: Aspirin 81 MG TAB.CHEW PO SCH (07:39)
[2021-05-09] MEDS: *HR* OxyCODONE Immed Rel 5 MG TABLET PO PRN ×3 (07:56→20:54)
[2021-05-09 08:16] LABS: Hemoglobin 8.7 g/dL (12.9-16.9)
[2021-05-09] MEDS ORDERED: amLODIPine 5 MG TABLET PO SCH (09:00)
[2021-05-09] MEDS ORDERED: Loratadine 10 MG TABLET PO SCH (09:00)
[2021-05-09] MEDS: Isosorbide MONOnitrate (24 HR) 30 MG TAB.ER.24H PO SCH (10:23)
[2021-05-09] MEDS: atenoloL 25 MG TABLET PO SCH ×2 (10:23→20:45)
[2021-05-09] MEDS: lisinopriL 20 MG TABLET PO SCH (10:23)
[2021-05-09 11:01] LABS: BUN/Creatinine Ratio 16 (6-26); Blood Urea Nitrogen 12 mg/dL (8-23); Calcium 8.5 mg/dL (8.6-10.3); Carbon Dioxide 25 mEq/L (23-29); Chloride 101 mEq/L (98-107); Glucose 97 mg/dL (70-105); Osmolality,Calculated 272 (280-300); Sodium 131 mEq/L (136-145); eGFR For African Americans > 60 (> 60); eGFR For Non-African Americans > 60 (> 60)
[2021-05-09 11:48] LABS: Troponin I 0.29 ng/mL (< 0.04)
[2021-05-09] MEDS: Ringers Solution, Lactated 1,000 ML IVC SCH (12:24)
[2021-05-09] MEDS: *HR* HYDROcodone/Acet 5/325 mg TABLET PO PRN ×2 (15:30→23:32)
[2021-05-09] MEDS ORDERED: NON-FORMULARY MEDICATION 1 EACH EACH (Fluticasone Propion/Salmeterol [Fluticasone-Salmeter IH SCH (16:45)
[2021-05-09] MEDS ORDERED: Ringers Solution, Lactated 1,000 ML IVC SCH (18:35)
[2021-05-09] MEDS: Tiotropium 10 INH DOSE IH SCH (19:48)
[2021-05-09] MEDS ORDERED: METFORMIN HCL 1000 MG PO SCH (21:00)
[2021-05-10] MEDS: *HR* OxyCODONE Immed Rel 5 MG TABLET PO PRN (04:55)
[2021-05-10 05:18] LABS: Hematocrit 25.4 % (37.5-50.1); Hemoglobin 8.8 g/dL (12.9-16.9); Mean Corpuscular HGB Conc 34.6 g/dL (31.6-35.5); Mean Corpuscular Volume 80.9 fL (83.0-100.0); Mean Platelet Volume 9.4 fL (9.4-12.4); Platelet Count 331 K/mcL (140-400); Red Blood Count 3.14 M/mcL (4.19-5.50); Red Cell Distribution Width 15.2 % (11.5-14.5); White Blood Count 12.3 K/mcL (4.3-11.1)
[2021-05-10 06:03] LABS: BUN/Creatinine Ratio 17 (6-26); Blood Urea Nitrogen 13 mg/dL (8-23); Calcium 8.3 mg/dL (8.6-10.3); Carbon Dioxide 24 mEq/L (23-29); Chloride 100 mEq/L (98-107); Glucose 87 mg/dL (70-105); Osmolality,Calculated 261 (280-300); Sodium 126 mEq/L (136-145); eGFR For African Americans > 60 (> 60); eGFR For Non-African Americans > 60 (> 60)
[2021-05-10] MEDS: *HR* HYDROcodone/Acet 5/325 mg TABLET PO PRN (08:44)
[2021-05-10] MEDS: *HR* Metformin 500 MG TABLET PO SCH ×2 (08:44→21:21)
[2021-05-10] MEDS: GlipiZIDE 5 MG TABLET PO SCH ×2 (08:45→15:57)
[2021-05-10] MEDS: Isosorbide MONOnitrate (24 HR) 30 MG TAB.ER.24H PO SCH (08:45)
[2021-05-10] MEDS: Aspirin 81 MG TAB.CHEW PO SCH (08:45)
[2021-05-10] MEDS: lisinopriL 20 MG TABLET PO SCH (08:45)
[2021-05-10] MEDS: amLODIPine 5 MG TABLET PO SCH (08:45)
[2021-05-10] MEDS: Loratadine 10 MG TABLET PO SCH (08:45)
[2021-05-10] MEDS: atenoloL 25 MG TABLET PO SCH (08:45)
[2021-05-10] MEDS: Pantoprazole 40 MG VIAL IVP SCH (08:46)
[2021-05-10] MEDS ORDERED: Isosorbide MONOnitrate (24 HR) 60 MG TAB.ER.24H PO SCH (09:00)
[2021-05-10] MEDS ORDERED: NON-FORMULARY MEDICATION 1 EACH EACH (Lisinopril [Zestril] 40 MG Tablet) PO SCH (09:00)
[2021-05-10] MEDS ORDERED: NON-FORMULARY MEDICATION 1 EACH EACH (Pantoprazole Sodium 20 MG Tablet.Dr) PO SCH (09:00)
[2021-05-10] MEDS: Tiotropium 10 INH DOSE IH SCH (11:30)
[2021-05-10] MEDS ORDERED: Ringers Solution, Lactated 500 ML IVC ONE (13:41)
[2021-05-11 05:07] LABS: Hematocrit 24.7 % (37.5-50.1); Hemoglobin 8.2 g/dL (12.9-16.9); Mean Corpuscular HGB Conc 33.2 g/dL (31.6-35.5); Mean Corpuscular Hemoglobin 27.2 pg (28.0-33.3); Mean Corpuscular Volume 81.8 fL (83.0-100.0); Mean Platelet Volume 9.6 fL (9.4-12.4); Platelet Count 325 K/mcL (140-400); Red Blood Count 3.02 M/mcL (4.19-5.50); Red Cell Distribution Width 15.2 % (11.5-14.5); White Blood Count 12.5 K/mcL (4.3-11.1)
[2021-05-11 05:31] LABS: BUN/Creatinine Ratio 23 (6-26); Blood Urea Nitrogen 18 mg/dL (8-23); Calcium 8.4 mg/dL (8.6-10.3); Carbon Dioxide 22 mEq/L (23-29); Chloride 95 mEq/L (98-107); Glucose 113 mg/dL (70-105); Osmolality,Calculated 267 (280-300); Sodium 127 mEq/L (136-145); eGFR For African Americans > 60 (> 60); eGFR For Non-African Americans > 60 (> 60)
[2021-05-11] MEDS: Tiotropium 10 INH DOSE IH SCH (07:50)
[2021-05-11] MEDS: *HR* Metformin 500 MG TABLET PO SCH ×2 (08:45→20:50)
[2021-05-11] MEDS: amLODIPine 5 MG TABLET PO SCH (08:45)
[2021-05-11] MEDS: Pantoprazole 40 MG VIAL IVP SCH (08:46)
[2021-05-11] MEDS: Loratadine 10 MG TABLET PO SCH (08:46)
[2021-05-11] MEDS: Isosorbide MONOnitrate (24 HR) 60 MG TAB.ER.24H PO SCH (08:46)
[2021-05-11] MEDS: GlipiZIDE 5 MG TABLET PO SCH ×2 (08:46→18:34)
[2021-05-11] MEDS: Aspirin 81 MG TAB.CHEW PO SCH (08:46)
[2021-05-11] MEDS: lisinopriL 20 MG TABLET PO SCH (08:46)
[2021-05-11] MEDS: atenoloL 25 MG TABLET PO SCH ×2 (10:12→20:50)
[2021-05-11] MEDS: *HR* OxyCODONE Immed Rel 5 MG TABLET PO PRN (10:16)
[2021-05-12 01:13] LABS: Hematocrit 24.8 % (37.5-50.1); Hemoglobin 8.3 g/dL (12.9-16.9); Mean Corpuscular HGB Conc 33.5 g/dL (31.6-35.5); Mean Corpuscular Hemoglobin 27.3 pg (28.0-33.3); Mean Corpuscular Volume 81.6 fL (83.0-100.0); Mean Platelet Volume 9.7 fL (9.4-12.4); Platelet Count 352 K/mcL (140-400); Red Blood Count 3.04 M/mcL (4.19-5.50); Red Cell Distribution Width 15.4 % (11.5-14.5); White Blood Count 12.5 K/mcL (4.3-11.1)
[2021-05-12 01:32] LABS: BUN/Creatinine Ratio 26 (6-26); Blood Urea Nitrogen 23 mg/dL (8-23); Calcium 8.4 mg/dL (8.6-10.3); Carbon Dioxide 22 mEq/L (23-29); Chloride 98 mEq/L (98-107); Glucose 133 mg/dL (70-105); Magnesium 1.6 mg/dL (1.6-2.6); Osmolality,Calculated 270 (280-300); Potassium 3.9 mEq/L (3.5-5.1); Sodium 127 mEq/L (136-145); eGFR For African Americans > 60 (> 60); eGFR For Non-African Americans > 60 (> 60)
[2021-05-12] MEDS: Tiotropium 10 INH DOSE IH SCH (08:20)
[2021-05-12] MEDS: lisinopriL 20 MG TABLET PO SCH (08:21)
[2021-05-12] MEDS: Aspirin 81 MG TAB.CHEW PO SCH (08:21)
[2021-05-12] MEDS: amLODIPine 5 MG TABLET PO SCH (08:21)
[2021-05-12] MEDS: *HR* Metformin 500 MG TABLET PO SCH (08:22)
[2021-05-12] MEDS: Pantoprazole 40 MG VIAL IVP SCH (08:22)
[2021-05-12] MEDS: Isosorbide MONOnitrate (24 HR) 60 MG TAB.ER.24H PO SCH (08:22)
[2021-05-12] MEDS: Loratadine 10 MG TABLET PO SCH (08:22)
[2021-05-12] MEDS: GlipiZIDE 5 MG TABLET PO SCH ×2 (08:22→16:42)
[2021-05-12] MEDS: atenoloL 25 MG TABLET PO SCH (08:22)
[2021-05-12 19:15] VITALS: BP 107/41; PULSE 85; TEMP 98.2; O2SAT 100
== END 2021-05-12 20:28 | disposition home health service (06) | DRG 252 ==
LOC: SAMDAY 06:02 → SUATTDRO 15:54 → 2NNU 15:54
PROVIDERS: ADMIT Surgery Vascular Surgery; ATTEND Student in an Organized Health Care Education/Training Program

== ENCOUNTER 2021-12-07 12:50 | Inpatient (IN) ==
[2021-12-07] MEDS ORDERED: 0.9 % Sodium Chloride 1,000 ML IVC ONE (12:55)
[2021-12-07] MEDS ORDERED: Iopamidol - 370 500 ML MLS IVP ONE (13:08)
[2021-12-07] MEDS ORDERED: methylPREDNISolone 125 MG/2 ML VIAL IVP ONE (13:29)
[2021-12-07] MEDS ORDERED: Ipratropium/Albuterol Neb 3 ML IH ONE (13:29)
[2021-12-07 13:51] LABS: Hematocrit 28.2 % (37.5-50.1); Mean Corpuscular HGB Conc 31.9 g/dL (31.6-35.5); Mean Corpuscular Hemoglobin 23.5 pg (28.0-33.3); Mean Corpuscular Volume 73.6 fL (83.0-100.0); Mean Platelet Volume 9.3 fL (9.4-12.4); Platelet Count 428 K/mcL (140-400); Red Blood Count 3.83 M/mcL (4.19-5.50); Red Cell Distribution Width 17.4 % (11.5-14.5); White Blood Count 18.2 K/mcL (4.3-11.1)
[2021-12-07 14:23] LABS: Calcium 8.1 mg/dL (8.6-10.3); Potassium 5.2 mEq/L (3.5-5.1)
[2021-12-07] MEDS ORDERED: 0.9 % Sodium Chloride 250 ML ONE (14:28)
[2021-12-07] MEDS ORDERED: *HR* Norepinephrine 4 MG/4 ML VIAL IVC ONE (14:29)
[2021-12-07 14:46] LABS: Lymphocytes # 2.2 K/mcL (0.6-4.6); Monocytes # 1.5 K/mcL (0.0-1.3); Neutrophils # 14.6 K/mcL (1.6-8.9); Poikilocytosis 2+ (Not Present)
[2021-12-07 14:47] LABS: Large Platelets Present (Not Present)
[2021-12-07] MEDS ORDERED: cefTRIAXone 1,000 MG in 0.9 % Sodium Chloride 10 ML IVP ONE (15:39)
[2021-12-07] MEDS ORDERED: Naloxone 0.4 MG/ML INJ IVP PRN (15:43)
[2021-12-07 15:49] LABS: Troponin I 6.74 ng/mL (< 0.04)
[2021-12-07] MEDS ORDERED: *HR* Heparin 5,000 UNIT/ML VIAL IVP ONE (15:57)
[2021-12-07] MEDS ORDERED: *HR* Heparin 5,000 UNIT/ML VIAL IVP PRN (15:57)
[2021-12-07] MEDS ORDERED: Aspirin 81 MG TAB.CHEW PO STA (15:58)
[2021-12-07] MEDS ORDERED: Albumin 25% 25gram/100mL 25 GM/100 ML IV.SOLN IVPB ONE (16:00)
[2021-12-07 16:43] LABS: Bacteria,Urine Moderate per hpf (None-Few); Bilirubin,Urine Negative (Negative); Blood,Urine Large (Negative); Clarity,Urine Ex.Turbid (Clear); Color,Urine Yellow (Yellow); Glucose,Urine (UA) Normal (Normal); Hyaline Casts,Urine Moderate per lpf (None Seen); Ketones,Urine Negative (Negative); Leukocyte Esterase,Urine Large (Negative); Mucus,Urine Few per lpf (None-Few); Nitrite,Urine Negative (Negative); Protein,Urine >=300 mg/dL (Neg-Trace); RBC,Urine 15-30 per hpf (0-3); Renal Epithelial Cells,Urine Moderate per hpf (None-Few); Specific Gravity,Urine 1.017 (1.010-1.025); Urobilinogen,Urine Normal (Normal); WBC,Urine TNTC per hpf (0-3)
[2021-12-07] MEDS: Norepinephrine 4 MG/254 ML IV.SOLN IVC SCH ×2 (16:59→23:08)
[2021-12-07] MEDS: Heparin 25,000UNIT/250ML 1/2NS 25,000 UNIT/250 ML IV.SOLN IVC SCH (17:00)
[2021-12-07 17:14] LABS: Adenovirus Not Detected (Not Detect); Bordetella Pertussis Not Detected (Not Detect); Chlamydophila pneumoniae Not Detected (Not Detect); Coronavirus 229E Not Detected (Not Detect); Coronavirus HKU1 Not Detected (Not Detect); Coronavirus NL63 Not Detected (Not Detect); Coronavirus OC43 Not Detected (Not Detect); Human Metapneumovirus Not Detected (Not Detect); Human Rhinovirus/Enterovirus Not Detected (Not Detect); Influenza A Subtype 2009 H1 Not Detected (Not Detect); Influenza B Not Detected (Not Detect); Mycoplasma pneumoniae Not Detected (Not Detect); Parainfluenza Virus 1 Not Detected (Not Detect); Parainfluenza Virus 2 Not Detected (Not Detect); Parainfluenza Virus 3 Not Detected (Not Detect); Parainfluenza Virus 4 Not Detected (Not Detect); Respiratory Syncytial Virus Not Detected (Not Detect); SARS-CoV-2 Not Detected (Not Detect)
[2021-12-07 17:18] LABS: Heparin anti-factor XA UFH < 0.04 IU/mL (0.30-0.70); INR 1.5; Prothrombin Time 16.9 Seconds (9.4-12.1)
[2021-12-07] MEDS: Ipratropium/Albuterol Neb 3 ML IH SCH ×3 (17:23→23:21)
[2021-12-07] MEDS: Vasopressin 40 UNIT in D5% in Water 100 ML IVC SCH (19:33)
[2021-12-07] MEDS: Budesonide/Formoterol 160/4.5 1 PUFF INH IH SCH (20:05)
[2021-12-07 20:07] LABS: Albumin 3.1 g/dL (3.5-5.7); Bilirubin,Direct 0.4 mg/dL (0.0-0.2); Bilirubin,Indirect 0.3 mg/dL (0.0-1.0); Bilirubin,Total 0.7 mg/dL (0.3-1.0); Calcium 7.5 mg/dL (8.6-10.3); Magnesium 1.6 mg/dL (1.6-2.6); Total Protein 6.1 g/dL (6.4-8.9)
[2021-12-07] MEDS: SODIUM ZIRCONIUM CYCLOSILICATE 5 GM POWD.PACK PO SCH (21:18)
[2021-12-07] MEDS: *HR* Heparin 5,000 UNIT/ML VIAL IVP PRN (23:34)
[2021-12-07] MEDS: Hydrocortisone Sodium Succ 100 MG/2 ML VIAL IVP SCH (23:36)
[2021-12-08] MEDS: Mag Hydrox/Al Hydrox/Simeth 30 ML UDC PO PRN (00:07)
[2021-12-08] MEDS ORDERED: GI Cocktail 40 ML EACH PO ONE ×2 (01:54→12:34)
[2021-12-08] MEDS: Ipratropium/Albuterol Neb 3 ML IH SCH ×6 (03:40→23:42)
[2021-12-08 05:50] LABS: Hematocrit 24.2 % (37.5-50.1); Hemoglobin 8.1 g/dL (12.9-16.9); Mean Corpuscular HGB Conc 33.5 g/dL (31.6-35.5); Mean Corpuscular Hemoglobin 23.8 pg (28.0-33.3); Mean Corpuscular Volume 71.2 fL (83.0-100.0); Mean Platelet Volume 9.3 fL (9.4-12.4); Platelet Count 375 K/mcL (140-400); Red Cell Distribution Width 17.2 % (11.5-14.5); White Blood Count 22.4 K/mcL (4.3-11.1)
[2021-12-08] MEDS: *HR* Heparin 5,000 UNIT/ML VIAL IVP PRN ×3 (06:05→19:04)
[2021-12-08 06:11] LABS: Albumin 3.1 g/dL (3.5-5.7); Albumin/Globulin Ratio 1.1 (1.1-2.2); Bilirubin,Total 0.5 mg/dL (0.3-1.0); Calcium 7.2 mg/dL (8.6-10.3); Globulin 2.8 g/dL (2.4-3.5); Total Protein 5.9 g/dL (6.4-8.9)
[2021-12-08 06:23] LABS: Anisocytosis 1+ (Not Present); Hypochromasia Present (Not Present); Lymphocytes # 0.9 K/mcL (0.6-4.6); Monocytes # 1.3 K/mcL (0.0-1.3); Neutrophils # 20.2 K/mcL (1.6-8.9); Platelet Estimate Normal (Normal)
[2021-12-08 07:29] LABS: Magnesium 2.1 mg/dL (1.6-2.6)
[2021-12-08] MEDS: Budesonide/Formoterol 160/4.5 1 PUFF INH IH SCH ×2 (07:35→20:05)
[2021-12-08] MEDS: Hydrocortisone Sodium Succ 100 MG/2 ML VIAL IVP SCH ×3 (07:58→23:08)
[2021-12-08] MEDS: Aspirin 81 MG TAB.CHEW PO SCH (07:58)
[2021-12-08] MEDS: SODIUM ZIRCONIUM CYCLOSILICATE 5 GM POWD.PACK PO SCH (07:58)
[2021-12-08] MEDS ORDERED: Ondansetron 4 MG/2 ML VIAL ONE (09:22)
[2021-12-08] MEDS ORDERED: Ondansetron 4 MG/2 ML VIAL IVP ONE (09:26)
[2021-12-08] MEDS: Sodium Bicarbonate 150 MEQ in D5% in Water 1,000 ML IVC SCH ×2 (11:02→22:26)
[2021-12-08 12:44] LABS: Calcium 6.9 mg/dL (8.6-10.3); Potassium 4.8 mEq/L (3.5-5.1)
[2021-12-08] MEDS: Insulin LISPRO 300 UNITS/3 ML VIAL SUBQ SCH ×2 (12:47→17:54)
[2021-12-08 13:31] LABS: Troponin I 3.07 ng/mL (< 0.04)
[2021-12-08] MEDS: Heparin 25,000UNIT/250ML 1/2NS 25,000 UNIT/250 ML IV.SOLN IVC SCH (14:15)
[2021-12-08] MEDS: cefTRIAXone 2,000 MG in 0.9 % Sodium Chloride 20 ML IVP SCH (16:18)
[2021-12-08] MEDS: Norepinephrine 4 MG/254 ML IV.SOLN IVC SCH ×3 (17:30→23:06)
[2021-12-08] MEDS ORDERED: D5% in Water 1,000 ML IVC PRN (17:55)
[2021-12-08] MEDS ORDERED: *HR* Dextrose 50 % in Water (Syg) 50 ML SYRINGE IVP PRN ×2 (17:55→18:19)
[2021-12-08] MEDS ORDERED: Dextrose Gel 15 GM/37.5 ML TUBE PO PRN ×2 (17:55)
[2021-12-08] MEDS ORDERED: Insulin LISPRO 300 UNITS/3 ML VIAL SUBQ SCH (18:00)
[2021-12-08] MEDS ORDERED: Insulin DETEMIR 100 UNIT/ML X5UNITS SUBQ SCH (18:02)
[2021-12-08] MEDS: Vasopressin 40 UNIT in D5% in Water 100 ML IVC SCH (19:57)
[2021-12-08] MEDS ORDERED: Chloraseptic Spray 177 ML BOTTLE MM PRN (20:08)
[2021-12-09] MEDS: *HR* Heparin 5,000 UNIT/ML VIAL IVP PRN (01:25)
[2021-12-09] MEDS: Vasopressin 40 UNIT in D5% in Water 100 ML IVC SCH (03:35)
[2021-12-09] MEDS: Ipratropium/Albuterol Neb 3 ML IH SCH ×7 (03:38→23:23)
[2021-12-09 03:55] LABS: Red Cell Distribution Width 16.7 % (11.5-14.5)
[2021-12-09 03:57] LABS: Hemoglobin 8.6 g/dL (12.9-16.9); Mean Corpuscular HGB Conc 34.4 g/dL (31.6-35.5); Mean Corpuscular Hemoglobin 23.6 pg (28.0-33.3); Mean Corpuscular Volume 68.5 fL (83.0-100.0); Mean Platelet Volume 9.7 fL (9.4-12.4); Nucleated Red Blood Cells 0.1 /100 WBC (0); Platelet Count 419 K/mcL (140-400); Red Blood Count 3.65 M/mcL (4.19-5.50)
[2021-12-09 04:01] LABS: Alanine Aminotransferase 28 Units/L (7-52); Albumin/Globulin Ratio 1.1 (1.1-2.2); Alkaline Phosphatase 123 Units/L (34-104); Aspartate Amino Transferase 23 Units/L (13-39); BUN/Creatinine Ratio 19 (6-26); Bilirubin,Total 0.4 mg/dL (0.3-1.0); Blood Urea Nitrogen 73 mg/dL (8-23); Calcium 6.7 mg/dL (8.6-10.3); Carbon Dioxide 21 mEq/L (23-29); Chloride 92 mEq/L (98-107); Globulin 2.8 g/dL (2.4-3.5); Glucose 141 mg/dL (70-105); Iron < 10 mcg/dL (65-175); Osmolality,Calculated 282 (280-300); Sodium 124 mEq/L (136-145); Total Protein 5.8 g/dL (6.4-8.9); Transferrin 219 mg/dL (203-362); Troponin I 3.24 ng/mL (< 0.04); eGFR For African Americans 18 (> 60); eGFR For Non-African Americans 15 (> 60)
[2021-12-09 04:08] LABS: Complement C3 99 mg/dL (87-200)
[2021-12-09 04:14] LABS: Ferritin 110 ng/mL (20-250); Thyroid Stimulating Hormone 0.764 mcIU/mL (0.340-5.600)
[2021-12-09 04:37] LABS: Lymphocytes # 0.7 K/mcL (0.6-4.6); Monocytes # 1.3 K/mcL (0.0-1.3)
[2021-12-09 04:38] LABS: Burr Cells 1+ (Not Present); Microcytosis Present (Not Present); Platelet Estimate Normal (Normal)
[2021-12-09 04:40] LABS: Hypochromasia Present (Not Present); Poikilocytosis 1+ (Not Present)
[2021-12-09 04:45] LABS: Rheumatoid Factor < 10 IU/mL (Less than 14); Vitamin B12 176 pg/mL (250-1100)
[2021-12-09] MEDS: Norepinephrine 4 MG/254 ML IV.SOLN IVC SCH (05:04)
[2021-12-09] MEDS: Heparin 25,000UNIT/250ML 1/2NS 25,000 UNIT/250 ML IV.SOLN IVC SCH (05:05)
[2021-12-09] MEDS: Calcium Gluconate 1gm/50mL 1 GM/50 ML BAG IVPB SCH ×3 (05:30→07:14)
[2021-12-09] MEDS: Hydrocortisone Sodium Succ 100 MG/2 ML VIAL IVP SCH ×3 (07:14→23:35)
[2021-12-09] MEDS: Aspirin 81 MG TAB.CHEW PO SCH (07:15)
[2021-12-09] MEDS: SODIUM ZIRCONIUM CYCLOSILICATE 5 GM POWD.PACK PO SCH (07:41)
[2021-12-09] MEDS ORDERED: D5% in Water 1,000 ML IVC PRN (07:54)
[2021-12-09] MEDS ORDERED: Dextrose Gel 15 GM/37.5 ML TUBE PO PRN ×2 (07:54)
[2021-12-09] MEDS ORDERED: *HR* Dextrose 50 % in Water (Syg) 50 ML SYRINGE IVP PRN (07:54)
[2021-12-09 07:56] LABS: Protein/Creatinine Ratio,Urine 1.95 mg/mg (0.00-0.20); Sodium, Urine 37.4 mEq/L
[2021-12-09] MEDS: Budesonide/Formoterol 160/4.5 1 PUFF INH IH SCH ×2 (08:06→19:32)
[2021-12-09] MEDS: Morphine Sulfate 2 MG/ML SYRINGE IVP PRN ×2 (09:52→14:04)
[2021-12-09] MEDS: Sodium Bicarbonate 150 MEQ in D5% in Water 1,000 ML IVC SCH (10:15)
[2021-12-09 11:41] LABS: Magnesium 2.2 mg/dL (1.6-2.6)
[2021-12-09] MEDS: Insulin LISPRO 300 UNITS/3 ML VIAL SUBQ SCH ×3 (11:45→23:36)
[2021-12-09] MEDS ORDERED: Bumetanide 1 MG/4 ML VIAL IVP ONE (12:07)
[2021-12-09] MEDS ORDERED: Metoclopramide 10 MG/2 ML VIAL IVP ONE (12:14)
[2021-12-09] MEDS: BUMETANIDE IVC SCH (12:37)
[2021-12-09] MEDS: GuaiFENesin Liq 200 MG/10 ML UDC PO PRN (13:10)
[2021-12-09 14:31] LABS: VBG Ionized Calcium 0.96 mmol/L (1.15-1.35)
[2021-12-09] MEDS ORDERED: Calcium Chloride 1,000 MG in 0.9 % Sodium Chloride 100 ML IVPB ONE (15:22)
[2021-12-09] MEDS: cefTRIAXone 2,000 MG in 0.9 % Sodium Chloride 20 ML IVP SCH (15:27)
[2021-12-09] MEDS: Dexmedetomidine HCl 400 MCG/100 ML MLS IVC SCH (21:20)
[2021-12-10] MEDS: Dexmedetomidine HCl 400 MCG/100 ML MLS IVC SCH ×3 (01:42→23:00)
[2021-12-10] MEDS: Ipratropium/Albuterol Neb 3 ML IH SCH ×6 (03:06→23:40)
[2021-12-10 04:08] LABS: Basophils % 0.2 %; Hemoglobin 8.7 g/dL (12.9-16.9); Immature Granulocytes % 1.7 % (0-4); Lymphocytes # 0.7 K/mcL (0.6-4.6); Mean Corpuscular HGB Conc 34.8 g/dL (31.6-35.5); Mean Corpuscular Hemoglobin 23.3 pg (28.0-33.3); Mean Platelet Volume 9.8 fL (9.4-12.4); Monocytes # 1.3 K/mcL (0.0-1.3); Monocytes % 5.3 %; Neutrophils # 21.5 K/mcL (1.6-8.9); Nucleated Red Blood Cells 0.1 /100 WBC (0); Platelet Count 297 K/mcL (140-400); Red Blood Count 3.73 M/mcL (4.19-5.50); Red Cell Distribution Width 16.8 % (11.5-14.5); Segmented Neutrophils % 89.8 %; White Blood Count 23.9 K/mcL (4.3-11.1)
[2021-12-10 04:10] LABS: Basophils # 0.1 K/mcL (0.0-0.2)
[2021-12-10 04:24] LABS: Anisocytosis 1+ (Not Present); Hypochromasia Present (Not Present); Platelet Estimate Normal (Normal); Poikilocytosis 1+ (Not Present)
[2021-12-10 04:28] LABS: Albumin 2.9 g/dL (3.5-5.7); Bilirubin,Total 0.4 mg/dL (0.3-1.0); Calcium 7.5 mg/dL (8.6-10.3); Potassium 3.5 mEq/L (3.5-5.1); Total Protein 5.9 g/dL (6.4-8.9)
[2021-12-10] MEDS: Insulin LISPRO 300 UNITS/3 ML VIAL SUBQ SCH ×4 (05:07→21:26)
[2021-12-10] MEDS: Hydrocortisone Sodium Succ 100 MG/2 ML VIAL IVP SCH (07:32)
[2021-12-10] MEDS: Aspirin 81 MG TAB.CHEW PO SCH (07:32)
[2021-12-10] MEDS: Budesonide/Formoterol 160/4.5 1 PUFF INH IH SCH ×2 (07:42→19:48)
[2021-12-10] MEDS: Cyanocobalamin (B-12) 1,000 MCG/ML VIAL IM SCH (09:39)
[2021-12-10] MEDS ORDERED: Potassium Chloride Elixir 20 MEQ/15 ML UDC GTUBE ONE (11:24)
[2021-12-10] MEDS: BUMETANIDE IVC SCH (12:08)
[2021-12-10] MEDS: Sodium Bicarbonate 150 MEQ in D5% in Water 1,000 ML IVC SCH ×3 (12:49→15:54)
[2021-12-10] MEDS: Heparin 25,000UNIT/250ML 1/2NS 25,000 UNIT/250 ML IV.SOLN IVC SCH (13:00)
[2021-12-10] MEDS: cefTRIAXone 2,000 MG in 0.9 % Sodium Chloride 20 ML IVP SCH (15:42)
[2021-12-10] MEDS: GuaiFENesin Liq 200 MG/10 ML UDC PO PRN (15:49)
[2021-12-10] MEDS ORDERED: Saliva Stimulant 44.3ml BOTTLE PO PRN (16:17)
[2021-12-11] MEDS: Ipratropium/Albuterol Neb 3 ML IH SCH ×5 (03:37→20:23)
[2021-12-11 06:02] LABS: Basophils % 0.1 %; Hematocrit 24.1 % (37.5-50.1); Hemoglobin 8.4 g/dL (12.9-16.9); Immature Granulocytes % 2.4 % (0-4); Lymphocytes % 4.7 %; Mean Corpuscular HGB Conc 34.9 g/dL (31.6-35.5); Mean Corpuscular Hemoglobin 23.1 pg (28.0-33.3); Mean Corpuscular Volume 66.4 fL (83.0-100.0); Mean Platelet Volume 10.4 fL (9.4-12.4); Monocytes # 1.4 K/mcL (0.0-1.3); Monocytes % 6.7 %; Neutrophils # 18.4 K/mcL (1.6-8.9); Platelet Count 250 K/mcL (140-400); Red Blood Count 3.63 M/mcL (4.19-5.50); Red Cell Distribution Width 16.7 % (11.5-14.5); Segmented Neutrophils % 86.1 %
[2021-12-11 06:13] LABS: White Blood Count 21.4 K/mcL (4.3-11.1)
[2021-12-11 06:33] LABS: Albumin 2.6 g/dL (3.5-5.7); Bilirubin,Direct 0.1 mg/dL (0.0-0.2); Bilirubin,Indirect 0.3 mg/dL (0.0-1.0); Bilirubin,Total 0.4 mg/dL (0.3-1.0); Globulin 2.6 g/dL (2.4-3.5); Total Protein 5.2 g/dL (6.4-8.9); Troponin I 2.54 ng/mL (< 0.04)
[2021-12-11 06:35] LABS: Anisocytosis 1+ (Not Present); Hypochromasia Present (Not Present); Platelet Estimate Normal (Normal); Poikilocytosis 1+ (Not Present)
[2021-12-11] MEDS ORDERED: Potassium Chloride Elixir 20 MEQ/15 ML UDC PO ONE (07:06)
[2021-12-11] MEDS: Budesonide/Formoterol 160/4.5 1 PUFF INH IH SCH ×2 (07:39→20:25)
[2021-12-11] MEDS: Nystatin SUSP 5 ML UD.LIQ PO SCH ×4 (07:47→22:04)
[2021-12-11] MEDS: Cyanocobalamin (B-12) 1,000 MCG/ML VIAL IM SCH (08:56)
[2021-12-11] MEDS: Magic Mouthwash 10 ML UD Cup PO SCH ×3 (08:56→17:03)
[2021-12-11] MEDS: Insulin LISPRO 300 UNITS/3 ML VIAL SUBQ SCH ×4 (08:57→21:56)
[2021-12-11] MEDS: Aspirin 81 MG TAB.CHEW PO SCH (09:04)
[2021-12-11] MEDS: Dexmedetomidine HCl 400 MCG/100 ML MLS IVC SCH ×2 (09:15→21:57)
[2021-12-11] MEDS ORDERED: Acetaminophen IV 1,000 MG/100 ML BAG IVPB ONE (09:28)
[2021-12-11] MEDS: Sennosides/Docusate Sodium TABLET PO SCH (09:35)
[2021-12-11] MEDS: Mag Hydrox/Al Hydrox/Simeth 30 ML UDC PO PRN (09:35)
[2021-12-11] MEDS: Norepinephrine 4 MG/254 ML IV.SOLN IVC SCH ×3 (14:15→22:49)
[2021-12-11] MEDS: *HR* Heparin 5,000 UNIT/ML VIAL IVP PRN ×2 (14:35→21:52)
[2021-12-11] MEDS: cefTRIAXone 2,000 MG in 0.9 % Sodium Chloride 20 ML IVP SCH (15:47)
[2021-12-11] MEDS: Morphine Sulfate Oral CONC 10 MG/0.5 ML ORAL.SYG SL PRN (16:59)
[2021-12-11] MEDS: Morphine Sulfate 2 MG/ML SYRINGE IVP PRN (21:51)
[2021-12-11] MEDS: Heparin 25,000UNIT/250ML 1/2NS 25,000 UNIT/250 ML IV.SOLN IVC SCH (21:54)
[2021-12-11] MEDS: Vasopressin 40 UNIT in D5% in Water 100 ML IVC SCH (22:51)
[2021-12-11] MEDS: Calcium Gluconate 1gm/50mL 1 GM/50 ML BAG IVPB SCH (23:59)
[2021-12-12] MEDS: Ipratropium/Albuterol Neb 3 ML IH SCH ×7 (00:25→23:48)
[2021-12-12] MEDS: Calcium Gluconate 1gm/50mL 1 GM/50 ML BAG IVPB SCH ×2 (00:45→01:15)
[2021-12-12] MEDS: Norepinephrine 4 MG/254 ML IV.SOLN IVC SCH (04:38)
[2021-12-12] MEDS: BUMETANIDE IVC SCH ×2 (04:39→12:14)
[2021-12-12 04:54] LABS: Basophils # 0.1 K/mcL (0.0-0.2); Basophils % 0.4 %; Hematocrit 25.8 % (37.5-50.1); Hemoglobin 8.7 g/dL (12.9-16.9); Immature Granulocytes % 4.4 % (0-4); Lymphocytes # 1.4 K/mcL (0.6-4.6); Lymphocytes % 6.9 %; Mean Corpuscular HGB Conc 33.7 g/dL (31.6-35.5); Mean Corpuscular Hemoglobin 22.4 pg (28.0-33.3); Mean Corpuscular Volume 66.5 fL (83.0-100.0); Mean Platelet Volume 10.6 fL (9.4-12.4); Monocytes # 1.3 K/mcL (0.0-1.3); Monocytes % 6.5 %; Neutrophils # 16.6 K/mcL (1.6-8.9); Platelet Count 270 K/mcL (140-400); Red Blood Count 3.88 M/mcL (4.19-5.50); Red Cell Distribution Width 16.8 % (11.5-14.5); Segmented Neutrophils % 81.8 %; White Blood Count 20.3 K/mcL (4.3-11.1)
[2021-12-12 05:14] LABS: Albumin 2.7 g/dL (3.5-5.7); Bilirubin,Total 0.4 mg/dL (0.3-1.0); Globulin 2.8 g/dL (2.4-3.5); Potassium 3.8 mEq/L (3.5-5.1); Total Protein 5.5 g/dL (6.4-8.9)
[2021-12-12 05:17] LABS: Hypochromasia Present (Not Present); Microcytosis Present (Not Present); Platelet Estimate Normal (Normal)
[2021-12-12] MEDS: Dexmedetomidine HCl 400 MCG/100 ML MLS IVC SCH ×2 (06:31→14:37)
[2021-12-12] MEDS: Budesonide/Formoterol 160/4.5 1 PUFF INH IH SCH ×2 (07:52→19:48)
[2021-12-12] MEDS: Sennosides/Docusate Sodium TABLET PO SCH (08:20)
[2021-12-12] MEDS: Magic Mouthwash 10 ML UD Cup PO SCH ×3 (08:20→16:17)
[2021-12-12] MEDS: Aspirin 81 MG TAB.CHEW PO SCH (08:21)
[2021-12-12] MEDS: Nystatin SUSP 5 ML UD.LIQ PO SCH ×4 (08:21→21:26)
[2021-12-12] MEDS: Cyanocobalamin (B-12) 1,000 MCG/ML VIAL IM SCH (08:33)
[2021-12-12] MEDS: Cyanocobalamin (B-12) 1,000 MCG TABLET PO SCH (08:33)
[2021-12-12] MEDS: Morphine Sulfate Oral CONC 10 MG/0.5 ML ORAL.SYG SL PRN ×2 (08:40→23:19)
[2021-12-12] MEDS: Insulin LISPRO 300 UNITS/3 ML VIAL SUBQ SCH ×4 (09:06→21:27)
[2021-12-12] MEDS: Heparin 25,000UNIT/250ML 1/2NS 25,000 UNIT/250 ML IV.SOLN IVC SCH (11:44)
[2021-12-12] MEDS: cefTRIAXone 2,000 MG in 0.9 % Sodium Chloride 20 ML IVP SCH (15:35)
[2021-12-12] MEDS: Lidocaine Viscous Oral Soln 15 ML SOLUTION MM PRN (15:36)
[2021-12-13] MEDS: Mag Hydrox/Al Hydrox/Simeth 30 ML UDC PO PRN (00:27)
[2021-12-13] MEDS: Lactulose Oral Soln 20 GM/30 ML UDC PO SCH ×2 (00:27→08:25)
[2021-12-13] MEDS: Dexmedetomidine HCl 400 MCG/100 ML MLS IVC SCH ×3 (00:27→20:33)
[2021-12-13] MEDS: Heparin 25,000UNIT/250ML 1/2NS 25,000 UNIT/250 ML IV.SOLN IVC SCH (03:13)
[2021-12-13] MEDS: Ipratropium/Albuterol Neb 3 ML IH SCH ×6 (04:20→23:27)
[2021-12-13] MEDS: Norepinephrine 4 MG/254 ML IV.SOLN IVC SCH ×2 (05:15→20:31)
[2021-12-13 05:21] LABS: Basophils # 0.1 K/mcL (0.0-0.2); Basophils % 0.5 %; Eosinophils # 0.1 K/mcL (0.0-0.6); Eosinophils % 0.4 %; Hematocrit 24.5 % (37.5-50.1); Hemoglobin 8.2 g/dL (12.9-16.9); Immature Granulocytes % 5.1 % (0-4); Lymphocytes # 1.7 K/mcL (0.6-4.6); Lymphocytes % 9.5 %; Mean Corpuscular HGB Conc 33.5 g/dL (31.6-35.5); Mean Corpuscular Hemoglobin 22.7 pg (28.0-33.3); Mean Corpuscular Volume 67.7 fL (83.0-100.0); Mean Platelet Volume 10.8 fL (9.4-12.4); Monocytes % 6.4 %; Nucleated Red Blood Cells 0.1 /100 WBC (0); Platelet Count 292 K/mcL (140-400); Red Blood Count 3.62 M/mcL (4.19-5.50); Segmented Neutrophils % 78.1 %; White Blood Count 17.9 K/mcL (4.3-11.1)
[2021-12-13 05:23] LABS: Anisocytosis 1+ (Not Present); Hypochromasia Present (Not Present); Monocytes # 1.2 K/mcL (0.0-1.3); Platelet Estimate Normal (Normal)
[2021-12-13 05:39] LABS: Albumin 2.7 g/dL (3.5-5.7); Bilirubin,Total 0.4 mg/dL (0.3-1.0); Calcium 7.6 mg/dL (8.6-10.3); Globulin 2.8 g/dL (2.4-3.5); Potassium 2.9 mEq/L (3.5-5.1); Total Protein 5.5 g/dL (6.4-8.9)
[2021-12-13] MEDS ORDERED: Potassium Chloride Elixir 20 MEQ/15 ML UDC PO ONE (05:54)
[2021-12-13] MEDS: *HR* Heparin 5,000 UNIT/ML VIAL IVP PRN (06:09)
[2021-12-13] MEDS: Lidocaine Viscous Oral Soln 15 ML SOLUTION MM PRN (06:31)
[2021-12-13] MEDS: Budesonide/Formoterol 160/4.5 1 PUFF INH IH SCH (07:30)
[2021-12-13 08:07] LABS: Magnesium 1.9 mg/dL (1.6-2.6)
[2021-12-13] MEDS: Sennosides/Docusate Sodium TABLET PO SCH (08:24)
[2021-12-13] MEDS: Aspirin 81 MG TAB.CHEW PO SCH (08:24)
[2021-12-13] MEDS: Magic Mouthwash 10 ML UD Cup PO SCH ×3 (08:25→15:03)
[2021-12-13] MEDS: Cyanocobalamin (B-12) 1,000 MCG TABLET PO SCH (08:25)
[2021-12-13] MEDS: Nystatin SUSP 5 ML UD.LIQ PO SCH ×4 (08:25→20:32)
[2021-12-13] MEDS: Insulin LISPRO 300 UNITS/3 ML VIAL SUBQ SCH ×4 (08:26→20:54)
[2021-12-13] MEDS ORDERED: Metoclopramide 10 MG/2 ML VIAL IVP ONE (09:14)
[2021-12-13] MEDS ORDERED: Bisacodyl 10 MG RECTAL SUPPOSITORY RC SCH ×2 (09:15→11:00)
[2021-12-13] MEDS ORDERED: Magnesium Sulfate 1 GM/102 ML PIGGYBACK IVPB ONE (09:54)
[2021-12-13 10:18] LABS: Alpha 2 Globulin (PEP) 1.13 g/dL (0.48-1.05); Beta Globulin (PEP) 0.61 g/dL (0.48-1.10)
[2021-12-13] MEDS: Albumin 25% 25gram/100mL 25 GM/100 ML IV.SOLN IVPB SCH ×3 (10:56→23:37)
[2021-12-13] MEDS: BUMETANIDE IVC SCH (11:37)
[2021-12-13 14:27] LABS: VBG Ionized Calcium 0.99 mmol/L (1.15-1.35)
[2021-12-13 14:44] LABS: Calcium 7.7 mg/dL (8.6-10.3); Potassium 3.1 mEq/L (3.5-5.1)
[2021-12-13 14:45] LABS: Magnesium 2.3 mg/dL (1.6-2.6); Phosphorous 4.9 mg/dL (2.7-4.5)
[2021-12-13 14:53] LABS: IFE Reflexed NOT DONE
[2021-12-13] MEDS: *HR* Heparin 5,000 UNIT/ML VIAL SQ SCH ×2 (15:02→20:32)
[2021-12-13] MEDS: cefTRIAXone 2,000 MG in 0.9 % Sodium Chloride 20 ML IVP SCH (15:02)
[2021-12-13] MEDS ORDERED: Calcium Gluconate 1gm/50mL 1 GM/50 ML BAG IVPB ONE (15:44)
[2021-12-13] MEDS: Furosemide 40 MG/4 ML VIAL IVP SCH (20:32)
[2021-12-13] MEDS ORDERED: Potassium Chloride Elixir 20 MEQ/15 ML UDC PO SCH (21:00)
[2021-12-14] MEDS: Ipratropium/Albuterol Neb 3 ML IH SCH ×6 (03:58→23:23)
[2021-12-14 04:15] LABS: Albumin 3.7 g/dL (3.5-5.7); Albumin/Globulin Ratio 1.4 (1.1-2.2); Bilirubin,Total 0.5 mg/dL (0.3-1.0); Calcium 8.6 mg/dL (8.6-10.3); Globulin 2.6 g/dL (2.4-3.5); Magnesium 2.2 mg/dL (1.6-2.6); Potassium 3.2 mEq/L (3.5-5.1); Total Protein 6.3 g/dL (6.4-8.9)
[2021-12-14 04:17] LABS: Basophils # 0.1 K/mcL (0.0-0.2); Basophils % 0.4 %; Eosinophils # 0.1 K/mcL (0.0-0.6); Eosinophils % 0.6 %; Hematocrit 23.2 % (37.5-50.1); Hemoglobin 7.8 g/dL (12.9-16.9); Immature Granulocytes % 4.2 % (0-4); Lymphocytes # 1.3 K/mcL (0.6-4.6); Lymphocytes % 8.3 %; Mean Corpuscular HGB Conc 33.6 g/dL (31.6-35.5); Mean Corpuscular Hemoglobin 22.7 pg (28.0-33.3); Mean Corpuscular Volume 67.6 fL (83.0-100.0); Monocytes % 6.1 %; Neutrophils # 12.9 K/mcL (1.6-8.9); Nucleated Red Blood Cells 0.1 /100 WBC (0); Platelet Count 340 K/mcL (140-400); Red Blood Count 3.43 M/mcL (4.19-5.50); Red Cell Distribution Width 17.2 % (11.5-14.5); Segmented Neutrophils % 80.4 %
[2021-12-14 04:52] LABS: Hypochromasia Present (Not Present); Microcytosis Present (Not Present); Platelet Estimate Normal (Normal)
[2021-12-14] MEDS: *HR* Heparin 5,000 UNIT/ML VIAL SQ SCH ×2 (05:33→14:08)
[2021-12-14 07:19] LABS: Phosphorous 4.6 mg/dL (2.7-4.5)
[2021-12-14] MEDS: Lidocaine Viscous Oral Soln 15 ML SOLUTION MM PRN (08:20)
[2021-12-14] MEDS: Magic Mouthwash 10 ML UD Cup PO SCH ×3 (08:20→15:46)
[2021-12-14] MEDS: Albumin 25% 25gram/100mL 25 GM/100 ML IV.SOLN IVPB SCH (08:21)
[2021-12-14] MEDS: Nystatin SUSP 5 ML UD.LIQ PO SCH ×2 (08:21→12:32)
[2021-12-14] MEDS: Aspirin 81 MG TAB.CHEW PO SCH (08:21)
[2021-12-14] MEDS: Cyanocobalamin (B-12) 1,000 MCG TABLET PO SCH (08:21)
[2021-12-14] MEDS: Furosemide 40 MG/4 ML VIAL IVP SCH (08:22)
[2021-12-14] MEDS: Insulin LISPRO 300 UNITS/3 ML VIAL SUBQ SCH ×4 (09:50→20:49)
[2021-12-14] MEDS: Sennosides/Docusate Sodium TABLET PO SCH ×2 (09:51→17:11)
[2021-12-14] MEDS: Dexmedetomidine HCl 400 MCG/100 ML MLS IVC SCH (09:52)
[2021-12-14] MEDS: Metoclopramide 10 MG/2 ML VIAL IVP SCH ×3 (11:02→20:34)
[2021-12-14] MEDS: Mag Hydrox/Al Hydrox/Simeth 30 ML UDC PO PRN (11:02)
[2021-12-14] MEDS: Norepinephrine 4 MG/254 ML IV.SOLN IVC SCH (13:00)
[2021-12-14] MEDS: Morphine Sulfate Oral CONC 10 MG/0.5 ML ORAL.SYG SL PRN (13:03)
[2021-12-14 15:05] LABS: Calcium 8.5 mg/dL (8.6-10.3); Magnesium 1.9 mg/dL (1.6-2.6); Potassium 3.4 mEq/L (3.5-5.1)
[2021-12-14] MEDS ORDERED: Magnesium Sulfate 1 GM/102 ML PIGGYBACK IVPB ONE (15:24)
[2021-12-14] MEDS: cefTRIAXone 2,000 MG in 0.9 % Sodium Chloride 20 ML IVP SCH (15:46)
[2021-12-14] MEDS: Bisacodyl 10 MG RECTAL SUPPOSITORY RC SCH (17:12)
[2021-12-14] MEDS ORDERED: GI Cocktail 40 ML EACH PO ONE (19:55)
[2021-12-14] MEDS ORDERED: *HR* Heparin 5,000 UNIT/ML VIAL IVP ONE (20:01)
[2021-12-14] MEDS ORDERED: *HR* Heparin 5,000 UNIT/ML VIAL IVP PRN (20:01)
[2021-12-14] MEDS: Morphine Sulfate 2 MG/ML SYRINGE IVP PRN (20:08)
[2021-12-14] MEDS ORDERED: *HR* Midazolam HCl 5 MG/5 ML VIAL IVP ONE (20:30)
[2021-12-14] MEDS ORDERED: Midazolam HCl 50 MG/50 ML IV.SOLN IVC SCH (20:30)
[2021-12-14] MEDS ORDERED: Furosemide 40 MG/4 ML VIAL IVP ONE (20:33)
[2021-12-14 20:37] LABS: Basophils # 0.1 K/mcL (0.0-0.2); Basophils % 0.4 %; Eosinophils # 0.1 K/mcL (0.0-0.6); Eosinophils % 0.7 %; Hematocrit 24.8 % (37.5-50.1); Hemoglobin 8.3 g/dL (12.9-16.9); Immature Granulocytes % 3.3 % (0-4); Lymphocytes # 1.7 K/mcL (0.6-4.6); Lymphocytes % 8.6 %; Mean Corpuscular HGB Conc 33.5 g/dL (31.6-35.5); Mean Corpuscular Hemoglobin 23.1 pg (28.0-33.3); Mean Corpuscular Volume 69.1 fL (83.0-100.0); Mean Platelet Volume 10.3 fL (9.4-12.4); Monocytes # 1.3 K/mcL (0.0-1.3); Monocytes % 6.5 %; Neutrophils # 15.8 K/mcL (1.6-8.9); Platelet Count 367 K/mcL (140-400); Red Blood Count 3.59 M/mcL (4.19-5.50); Red Cell Distribution Width 17.4 % (11.5-14.5); Segmented Neutrophils % 80.5 %; White Blood Count 19.6 K/mcL (4.3-11.1)
[2021-12-14 20:38] LABS: Microcytosis Present (Not Present)
[2021-12-14] MEDS: Heparin 25,000UNIT/250ML 1/2NS 25,000 UNIT/250 ML IV.SOLN IVC SCH (20:40)
[2021-12-14] MEDS ORDERED: Morphine Sulfate 2 MG/ML SYRINGE IVP ONE (21:57)
[2021-12-14] MEDS ORDERED: 0.9 % Sodium Chloride 250 ML ONE (23:57)
[2021-12-15] MEDS ORDERED: MetroNIDAZOLE 500 MG/100 ML 500 MG/100 ML BAG IVPB ONE (00:30)
[2021-12-15] MEDS ORDERED: Furosemide 40 MG/4 ML VIAL IVP ONE (00:44)
[2021-12-15 01:06] LABS: Calcium 8.5 mg/dL (8.6-10.3); Heparin anti-factor XA UFH 0.1 IU/mL (0.30-0.70); Phosphorous 3.1 mg/dL (2.7-4.5); Potassium 4.1 mEq/L (3.5-5.1)
[2021-12-15 01:07] LABS: Hematocrit 25.4 % (37.5-50.1); Hemoglobin 8.5 g/dL (12.9-16.9); Immature Granulocytes % 3.8 % (0-4); Lymphocytes % 9.2 %; Mean Corpuscular HGB Conc 33.5 g/dL (31.6-35.5); Mean Corpuscular Volume 68.6 fL (83.0-100.0); Mean Platelet Volume 10.5 fL (9.4-12.4); Platelet Count 414 K/mcL (140-400); Red Cell Distribution Width 17.3 % (11.5-14.5); Segmented Neutrophils % 78.6 %; White Blood Count 18.7 K/mcL (4.3-11.1)
[2021-12-15 01:08] LABS: Basophils # 0.1 K/mcL (0.0-0.2); Basophils % 0.4 %; Eosinophils # 0.2 K/mcL (0.0-0.6); Eosinophils % 0.8 %; Lymphocytes # 1.7 K/mcL (0.6-4.6); Monocytes # 1.4 K/mcL (0.0-1.3); Monocytes % 7.2 %; Neutrophils # 14.7 K/mcL (1.6-8.9)
[2021-12-15 01:48] LABS: INR 1.6; Prothrombin Time 17.5 Seconds (9.4-12.1)
[2021-12-15 01:57] LABS: Anisocytosis 1+ (Not Present); Hypochromasia Present (Not Present); Poikilocytosis 1+ (Not Present)
[2021-12-15 01:58] LABS: Microcytosis Present (Not Present)
[2021-12-15] MEDS: Morphine Sulfate 2 MG/ML SYRINGE IVP PRN ×3 (02:56→17:52)
[2021-12-15] MEDS: Ipratropium/Albuterol Neb 3 ML IH SCH ×6 (03:44→23:24)
[2021-12-15] MEDS: Bisacodyl 10 MG RECTAL SUPPOSITORY RC SCH ×2 (06:16→17:45)
[2021-12-15] MEDS: Sennosides/Docusate Sodium TABLET PO SCH (06:16)
[2021-12-15] MEDS: Dexmedetomidine HCl 400 MCG/100 ML MLS IVC SCH ×2 (06:32→15:29)
[2021-12-15] MEDS: Norepinephrine 4 MG/254 ML IV.SOLN IVC SCH (08:57)
[2021-12-15] MEDS: Magic Mouthwash 10 ML UD Cup PO SCH ×3 (08:57→16:15)
[2021-12-15] MEDS: Aspirin 81 MG TAB.CHEW PO SCH (08:57)
[2021-12-15] MEDS: Cyanocobalamin (B-12) 1,000 MCG TABLET PO SCH (08:57)
[2021-12-15] MEDS: Metoclopramide 10 MG/2 ML VIAL IVP SCH ×3 (08:58→20:59)
[2021-12-15] MEDS: Insulin LISPRO 300 UNITS/3 ML VIAL SUBQ SCH ×4 (08:58→21:27)
[2021-12-15] MEDS: Furosemide 40 MG/4 ML VIAL IVP SCH (08:59)
[2021-12-15] MEDS: *HR* Heparin 5,000 UNIT/ML VIAL IVP PRN ×2 (09:19→17:35)
[2021-12-15 10:40] LABS: ANA IgG by ELISA NONE DETECTED (None Detected)
[2021-12-15] MEDS: Lidocaine Viscous Oral Soln 15 ML SOLUTION MM PRN (14:33)
[2021-12-15] MEDS: cefTRIAXone 2,000 MG in 0.9 % Sodium Chloride 20 ML IVP SCH (16:15)
[2021-12-15] MEDS: Heparin 25,000UNIT/250ML 1/2NS 25,000 UNIT/250 ML IV.SOLN IVC SCH (17:59)
[2021-12-15] MEDS: Mag Hydrox/Al Hydrox/Simeth 30 ML UDC PO PRN (20:59)
[2021-12-15] MEDS: GuaiFENesin Liq 200 MG/10 ML UDC PO PRN (21:00)
[2021-12-15] MEDS: Simethicone 80 MG TAB.CHEW PO PRN (21:00)
[2021-12-16] MEDS: Dexmedetomidine HCl 400 MCG/100 ML MLS IVC SCH ×3 (00:10→17:29)
[2021-12-16] MEDS: Ipratropium/Albuterol Neb 3 ML IH SCH ×6 (04:11→23:40)
[2021-12-16] MEDS: Bisacodyl 10 MG RECTAL SUPPOSITORY RC SCH ×2 (06:32→19:14)
[2021-12-16 07:04] LABS: Basophils # 0.1 K/mcL (0.0-0.2); Basophils % 0.3 %; Eosinophils # 0.2 K/mcL (0.0-0.6); Eosinophils % 0.8 %; Hematocrit 28.3 % (37.5-50.1); Hemoglobin 9.3 g/dL (12.9-16.9); Immature Granulocytes % 1.9 % (0-4); Lymphocytes # 1.8 K/mcL (0.6-4.6); Lymphocytes % 9.3 %; Mean Corpuscular HGB Conc 32.9 g/dL (31.6-35.5); Mean Corpuscular Hemoglobin 23.4 pg (28.0-33.3); Mean Corpuscular Volume 71.3 fL (83.0-100.0); Monocytes # 1.4 K/mcL (0.0-1.3); Monocytes % 7.2 %; Neutrophils # 15.6 K/mcL (1.6-8.9); Platelet Count 371 K/mcL (140-400); Red Blood Count 3.97 M/mcL (4.19-5.50); Red Cell Distribution Width 18.8 % (11.5-14.5); Segmented Neutrophils % 80.5 %; White Blood Count 19.3 K/mcL (4.3-11.1)
[2021-12-16 07:24] LABS: Calcium 8.4 mg/dL (8.6-10.3); Magnesium 1.9 mg/dL (1.6-2.6); Phosphorous 4.1 mg/dL (2.7-4.5); Potassium 4.8 mEq/L (3.5-5.1)
[2021-12-16] MEDS: Norepinephrine 4 MG/254 ML IV.SOLN IVC SCH ×2 (07:44→16:52)
[2021-12-16] MEDS: Heparin 25,000UNIT/250ML 1/2NS 25,000 UNIT/250 ML IV.SOLN IVC SCH (08:31)
[2021-12-16] MEDS: Metoclopramide 10 MG/2 ML VIAL IVP SCH ×3 (09:44→21:03)
[2021-12-16] MEDS: Furosemide 40 MG/4 ML VIAL IVP SCH (09:45)
[2021-12-16] MEDS: Aspirin 81 MG TAB.CHEW PO SCH (09:45)
[2021-12-16] MEDS: Cyanocobalamin (B-12) 1,000 MCG TABLET PO SCH (09:46)
[2021-12-16] MEDS: Magic Mouthwash 10 ML UD Cup PO SCH ×3 (09:49→16:44)
[2021-12-16] MEDS: Insulin LISPRO 300 UNITS/3 ML VIAL SUBQ SCH ×3 (09:53→16:47)
[2021-12-16 10:19] LABS: GBM IgG Multiplex Bead Assay 0 AU/mL (0-19); Glomerular Basement Memb IgG NEGATIVE (Negative)
[2021-12-16] MEDS: cefTRIAXone 2,000 MG in 0.9 % Sodium Chloride 20 ML IVP SCH (16:43)
[2021-12-16] MEDS: Morphine Sulfate 2 MG/ML SYRINGE IVP PRN ×2 (16:44→22:33)
[2021-12-16] MEDS: Simethicone 80 MG TAB.CHEW PO PRN (21:03)
[2021-12-17] MEDS: Insulin LISPRO 300 UNITS/3 ML VIAL SUBQ SCH ×5 (01:40→20:15)
[2021-12-17] MEDS: Heparin 25,000UNIT/250ML 1/2NS 25,000 UNIT/250 ML IV.SOLN IVC SCH (01:41)
[2021-12-17] MEDS: Ipratropium/Albuterol Neb 3 ML IH SCH ×6 (03:38→23:56)
[2021-12-17 05:56] LABS: ANCA IFA Titer <1:20 (<1:20)
[2021-12-17 07:17] LABS: Basophils # 0.1 K/mcL (0.0-0.2); Basophils % 0.5 %; Eosinophils # 0.1 K/mcL (0.0-0.6); Eosinophils % 0.8 %; Hematocrit 26.2 % (37.5-50.1); Hemoglobin 8.7 g/dL (12.9-16.9); Immature Granulocytes % 1.6 % (0-4); Lymphocytes # 1.8 K/mcL (0.6-4.6); Lymphocytes % 11.3 %; Mean Corpuscular HGB Conc 33.2 g/dL (31.6-35.5); Mean Corpuscular Volume 72.4 fL (83.0-100.0); Mean Platelet Volume 10.4 fL (9.4-12.4); Monocytes # 1.4 K/mcL (0.0-1.3); Monocytes % 8.9 %; Platelet Count 307 K/mcL (140-400); Red Blood Count 3.62 M/mcL (4.19-5.50); Red Cell Distribution Width 19.5 % (11.5-14.5); Segmented Neutrophils % 76.9 %; White Blood Count 15.6 K/mcL (4.3-11.1)
[2021-12-17] MEDS: Bisacodyl 10 MG RECTAL SUPPOSITORY RC SCH ×2 (07:31→18:40)
[2021-12-17 07:39] LABS: Calcium 8.1 mg/dL (8.6-10.3); Magnesium 1.7 mg/dL (1.6-2.6); Phosphorous 3.9 mg/dL (2.7-4.5); Potassium 4.2 mEq/L (3.5-5.1)
[2021-12-17] MEDS: Magic Mouthwash 10 ML UD Cup PO SCH ×2 (08:34→12:39)
[2021-12-17] MEDS: Cyanocobalamin (B-12) 1,000 MCG TABLET PO SCH (08:34)
[2021-12-17] MEDS: Aspirin 81 MG TAB.CHEW PO SCH (08:35)
[2021-12-17] MEDS: Furosemide 40 MG/4 ML VIAL IVP SCH (08:35)
[2021-12-17] MEDS: Metoclopramide 10 MG/2 ML VIAL IVP SCH ×2 (08:35→14:46)
[2021-12-17] MEDS: *HR* Heparin 5,000 UNIT/ML VIAL IVP PRN (08:44)
[2021-12-17] MEDS: Mag Hydrox/Al Hydrox/Simeth 30 ML UDC PO PRN (09:11)
[2021-12-17 09:16] LABS: ANCA IFA Pattern NONE DETECTED (None Detected); Serine Protease-3 Antibody 3 AU/mL (0-19)
[2021-12-17] MEDS ORDERED: *HR* Alteplase (Cathflo) 2 MG VIAL IVP ONE (14:28)
[2021-12-17] MEDS: Simethicone 80 MG TAB.CHEW PO PRN (14:46)
[2021-12-17] MEDS: cilostazoL 100 MG TABLET PO SCH (20:00)
[2021-12-17] MEDS: Budesonide/Formoterol 160/4.5 1 PUFF INH IH SCH (20:11)
[2021-12-17] MEDS ORDERED: Budesonide/Formoterol 160/4.5 1 PUFF INH IH PRN (22:00)
[2021-12-18 01:43] LABS: Basophils # 0.1 K/mcL (0.0-0.2); Basophils % 0.3 %; Eosinophils # 0.1 K/mcL (0.0-0.6); Eosinophils % 0.4 %; Hematocrit 27.7 % (37.5-50.1); Hemoglobin 9.2 g/dL (12.9-16.9); Immature Granulocytes % 1.4 % (0-4); Lymphocytes # 1.8 K/mcL (0.6-4.6); Lymphocytes % 9.2 %; Mean Corpuscular HGB Conc 33.2 g/dL (31.6-35.5); Mean Corpuscular Hemoglobin 23.8 pg (28.0-33.3); Mean Corpuscular Volume 71.8 fL (83.0-100.0); Mean Platelet Volume 10.2 fL (9.4-12.4); Monocytes # 1.8 K/mcL (0.0-1.3); Monocytes % 9.1 %; Neutrophils # 15.6 K/mcL (1.6-8.9); Platelet Count 363 K/mcL (140-400); Red Blood Count 3.86 M/mcL (4.19-5.50); Red Cell Distribution Width 19.8 % (11.5-14.5); Segmented Neutrophils % 79.6 %; White Blood Count 19.6 K/mcL (4.3-11.1)
[2021-12-18 03:28] LABS: Calcium 8.4 mg/dL (8.6-10.3); Phosphorous 3.4 mg/dL (2.7-4.5); Potassium 3.7 mEq/L (3.5-5.1)
[2021-12-18] MEDS: Ipratropium/Albuterol Neb 3 ML IH SCH ×5 (03:57→20:40)
[2021-12-18] MEDS ORDERED: *HR* Metoprolol 5 MG/5 ML VIAL IVP ONE ×2 (04:44→13:21)
[2021-12-18] MEDS: Bisacodyl 10 MG RECTAL SUPPOSITORY RC SCH ×2 (05:03→18:39)
[2021-12-18] MEDS ORDERED: Nitroglycerin 0.4 MG TAB.SUBL SL PRN (05:08)
[2021-12-18] MEDS: Tiotropium 10 INH DOSE IH SCH (07:47)
[2021-12-18] MEDS: Budesonide/Formoterol 160/4.5 1 PUFF INH IH SCH ×2 (07:48→20:40)
[2021-12-18] MEDS: Cyanocobalamin (B-12) 1,000 MCG TABLET PO SCH (08:10)
[2021-12-18] MEDS: cilostazoL 100 MG TABLET PO SCH ×2 (08:10→20:57)
[2021-12-18] MEDS: Aspirin 81 MG TAB.CHEW PO SCH (08:11)
[2021-12-18] MEDS: Insulin LISPRO 300 UNITS/3 ML VIAL SUBQ SCH ×4 (09:35→20:58)
[2021-12-18] MEDS: Furosemide 40 MG/4 ML VIAL IVP SCH (10:44)
[2021-12-18] MEDS: *HR* Heparin 5,000 UNIT/ML VIAL SQ SCH ×2 (13:54→20:58)
[2021-12-19] MEDS: Ipratropium/Albuterol Neb 3 ML IH SCH ×7 (00:19→23:56)
[2021-12-19 03:05] LABS: Basophils # 0.1 K/mcL (0.0-0.2); Basophils % 0.4 %; Eosinophils # 0.1 K/mcL (0.0-0.6); Eosinophils % 0.3 %; Hematocrit 24.5 % (37.5-50.1); Hemoglobin 8.1 g/dL (12.9-16.9); Immature Granulocytes % 0.6 % (0-4); Lymphocytes # 1.8 K/mcL (0.6-4.6); Lymphocytes % 11.5 %; Mean Corpuscular HGB Conc 33.1 g/dL (31.6-35.5); Mean Corpuscular Hemoglobin 23.9 pg (28.0-33.3); Mean Corpuscular Volume 72.3 fL (83.0-100.0); Monocytes # 1.4 K/mcL (0.0-1.3); Neutrophils # 12.1 K/mcL (1.6-8.9); Platelet Count 352 K/mcL (140-400); Red Blood Count 3.39 M/mcL (4.19-5.50); Red Cell Distribution Width 20.1 % (11.5-14.5); Segmented Neutrophils % 78.2 %; White Blood Count 15.4 K/mcL (4.3-11.1)
[2021-12-19 03:36] LABS: Calcium 8.5 mg/dL (8.6-10.3); Magnesium 1.8 mg/dL (1.6-2.6); Phosphorous 3.3 mg/dL (2.7-4.5); Potassium 2.7 mEq/L (3.5-5.1)
[2021-12-19] MEDS: Bisacodyl 10 MG RECTAL SUPPOSITORY RC SCH ×2 (03:51→16:28)
[2021-12-19] MEDS: *HR* Heparin 5,000 UNIT/ML VIAL SQ SCH ×3 (05:49→21:59)
[2021-12-19] MEDS: Magic Mouthwash 10 ML UD Cup PO SCH ×4 (06:23→16:47)
[2021-12-19] MEDS: *HR* Metoprolol 5 MG/5 ML VIAL IVP PRN ×3 (06:32→23:07)
[2021-12-19] MEDS: Aspirin 81 MG TAB.CHEW PO SCH (08:10)
[2021-12-19] MEDS: Furosemide 40 MG TABLET PO SCH (08:10)
[2021-12-19] MEDS: Cyanocobalamin (B-12) 1,000 MCG TABLET PO SCH (08:11)
[2021-12-19] MEDS: cilostazoL 100 MG TABLET PO SCH ×2 (08:11→20:02)
[2021-12-19] MEDS: Metoprolol XL (24 HR) Succ 25 MG TAB.ER.24H PO SCH ×2 (08:11→20:02)
[2021-12-19] MEDS: Budesonide/Formoterol 160/4.5 1 PUFF INH IH SCH ×2 (08:12→20:46)
[2021-12-19] MEDS: Tiotropium 10 INH DOSE IH SCH (08:13)
[2021-12-19] MEDS: Insulin LISPRO 300 UNITS/3 ML VIAL SUBQ SCH ×4 (08:19→20:02)
[2021-12-19] MEDS ORDERED: Furosemide 20 MG/2 ML VIAL IVP SCH (09:00)
[2021-12-19] MEDS ORDERED: Furosemide 20 MG/2 ML VIAL IVP ONE (13:29)
[2021-12-19] MEDS: Mag Hydrox/Al Hydrox/Simeth 30 ML UDC PO PRN (20:02)
[2021-12-20 04:01] LABS: Basophils # 0.1 K/mcL (0.0-0.2); Basophils % 0.7 %; Eosinophils # 0.1 K/mcL (0.0-0.6); Eosinophils % 0.4 %; Hematocrit 24.6 % (37.5-50.1); Hemoglobin 7.9 g/dL (12.9-16.9); Immature Granulocytes % 0.6 % (0-4); Lymphocytes % 13.4 %; Mean Corpuscular HGB Conc 32.1 g/dL (31.6-35.5); Mean Corpuscular Hemoglobin 23.7 pg (28.0-33.3); Mean Corpuscular Volume 73.7 fL (83.0-100.0); Mean Platelet Volume 10.8 fL (9.4-12.4); Monocytes # 1.1 K/mcL (0.0-1.3); Monocytes % 7.4 %; Neutrophils # 11.8 K/mcL (1.6-8.9); Platelet Count 414 K/mcL (140-400); Red Blood Count 3.34 M/mcL (4.19-5.50); Red Cell Distribution Width 20.5 % (11.5-14.5); Segmented Neutrophils % 77.5 %; White Blood Count 15.2 K/mcL (4.3-11.1)
[2021-12-20] MEDS: Ipratropium/Albuterol Neb 3 ML IH SCH ×6 (04:11→23:40)
[2021-12-20 04:43] LABS: Potassium 3.6 mEq/L (3.5-5.1)
[2021-12-20 04:44] LABS: Calcium 8.4 mg/dL (8.6-10.3); Magnesium 1.5 mg/dL (1.6-2.6)
[2021-12-20] MEDS: Bisacodyl 10 MG RECTAL SUPPOSITORY RC SCH (05:37)
[2021-12-20] MEDS: *HR* Heparin 5,000 UNIT/ML VIAL SQ SCH ×3 (05:37→21:04)
[2021-12-20] MEDS: Simethicone 80 MG TAB.CHEW PO PRN (05:37)
[2021-12-20] MEDS ORDERED: Magnesium Oxide 400 MG TABLET PO ONE (05:38)
[2021-12-20] MEDS: Budesonide/Formoterol 160/4.5 1 PUFF INH IH SCH ×2 (07:37→20:45)
[2021-12-20] MEDS: Tiotropium 10 INH DOSE IH SCH (07:39)
[2021-12-20] MEDS: Metoprolol XL (24 HR) Succ 25 MG TAB.ER.24H PO SCH ×2 (08:01→20:03)
[2021-12-20] MEDS: Aspirin 81 MG TAB.CHEW PO SCH (08:01)
[2021-12-20] MEDS: Furosemide 40 MG TABLET PO SCH (08:02)
[2021-12-20] MEDS: cilostazoL 100 MG TABLET PO SCH ×2 (08:02→20:02)
[2021-12-20] MEDS: Cyanocobalamin (B-12) 1,000 MCG TABLET PO SCH (08:02)
[2021-12-20] MEDS: Insulin LISPRO 300 UNITS/3 ML VIAL SUBQ SCH ×4 (08:04→20:03)
[2021-12-20] MEDS: Magic Mouthwash 10 ML UD Cup PO SCH (08:05)
[2021-12-20] MEDS ORDERED: *HR* Alteplase (Cathflo) 2 MG VIAL IVP ONE (13:06)
[2021-12-20] MEDS: Ranolazine 500 MG TAB.ER.12H PO SCH ×2 (16:39→20:02)
[2021-12-20] MEDS ORDERED: 0.9 % Sodium Chloride 250 ML ONE (20:36)
[2021-12-21] MEDS: Mag Hydrox/Al Hydrox/Simeth 30 ML UDC PO PRN (00:29)
[2021-12-21] MEDS: Ipratropium/Albuterol Neb 3 ML IH SCH ×5 (04:22→20:20)
[2021-12-21] MEDS: *HR* Heparin 5,000 UNIT/ML VIAL SQ SCH ×3 (05:00→20:46)
[2021-12-21 05:34] LABS: Basophils # 0.1 K/mcL (0.0-0.2); Basophils % 0.6 %; Eosinophils # 0.1 K/mcL (0.0-0.6); Eosinophils % 0.8 %; Hematocrit 26.3 % (37.5-50.1); Hemoglobin 8.5 g/dL (12.9-16.9); Immature Granulocytes % 0.7 % (0-4); Lymphocytes # 1.7 K/mcL (0.6-4.6); Lymphocytes % 12.5 %; Mean Corpuscular HGB Conc 32.3 g/dL (31.6-35.5); Mean Corpuscular Hemoglobin 23.7 pg (28.0-33.3); Mean Corpuscular Volume 73.3 fL (83.0-100.0); Mean Platelet Volume 10.3 fL (9.4-12.4); Monocytes % 7.2 %; Neutrophils # 10.7 K/mcL (1.6-8.9); Platelet Count 441 K/mcL (140-400); Red Blood Count 3.59 M/mcL (4.19-5.50); Segmented Neutrophils % 78.2 %; White Blood Count 13.7 K/mcL (4.3-11.1)
[2021-12-21 05:51] LABS: Calcium 8.2 mg/dL (8.6-10.3); Magnesium 1.6 mg/dL (1.6-2.6); Potassium 3.8 mEq/L (3.5-5.1)
[2021-12-21] MEDS: Budesonide/Formoterol 160/4.5 1 PUFF INH IH SCH ×2 (07:23→20:20)
[2021-12-21] MEDS: Tiotropium 10 INH DOSE IH SCH (07:25)
[2021-12-21] MEDS: cilostazoL 100 MG TABLET PO SCH ×2 (09:07→20:13)
[2021-12-21] MEDS: Cyanocobalamin (B-12) 1,000 MCG TABLET PO SCH (09:07)
[2021-12-21] MEDS: Metoprolol XL (24 HR) Succ 25 MG TAB.ER.24H PO SCH ×2 (09:07→20:13)
[2021-12-21] MEDS: Furosemide 40 MG TABLET PO SCH (09:08)
[2021-12-21] MEDS: Insulin LISPRO 300 UNITS/3 ML VIAL SUBQ SCH ×4 (09:08→20:13)
[2021-12-21] MEDS: Aspirin 81 MG TAB.CHEW PO SCH (09:08)
[2021-12-21] MEDS: Ranolazine 500 MG TAB.ER.12H PO SCH ×2 (09:10→20:13)
[2021-12-21] MEDS: Sucralfate 1 GM TABLET PO SCH ×3 (12:30→20:46)
[2021-12-21] MEDS: IVABRADINE HCL 7.5 MG TABLET PO SCH ×2 (13:17→20:46)
[2021-12-21 19:50] LABS: APTT (LE Anticoag) >150 sec (32-48); Diluted Russell Viper Venom 48 sec (33-44); LE APTT D Heparin Neutralized 82 sec (32-48); LE Coag APTT Mixing 60 sec (32-48); LE Dil. Russell Viper Mix 1:1 41 sec (33-44); PT (LE-Anticoag) 19.3 sec (12.0-15.5); Thrombin Time >150.0 sec (14.7-19.5)
[2021-12-22] MEDS: Ipratropium/Albuterol Neb 3 ML IH SCH ×5 (00:23→15:36)
[2021-12-22] MEDS: *HR* Heparin 5,000 UNIT/ML VIAL SQ SCH (05:42)
[2021-12-22 07:32] VITALS: TEMP 99.1
[2021-12-22] MEDS: Tiotropium 10 INH DOSE IH SCH (08:10)
[2021-12-22] MEDS: Budesonide/Formoterol 160/4.5 1 PUFF INH IH SCH (08:10)
[2021-12-22] MEDS: Insulin LISPRO 300 UNITS/3 ML VIAL SUBQ SCH ×2 (08:35→11:43)
[2021-12-22] MEDS: Ranolazine 500 MG TAB.ER.12H PO SCH (08:36)
[2021-12-22] MEDS: Furosemide 40 MG TABLET PO SCH (08:36)
[2021-12-22] MEDS: cilostazoL 100 MG TABLET PO SCH (08:36)
[2021-12-22] MEDS: Sucralfate 1 GM TABLET PO SCH ×2 (08:36→11:43)
[2021-12-22] MEDS: Metoprolol XL (24 HR) Succ 25 MG TAB.ER.24H PO SCH (08:36)
[2021-12-22] MEDS: Cyanocobalamin (B-12) 1,000 MCG TABLET PO SCH (08:37)
[2021-12-22] MEDS: IVABRADINE HCL 7.5 MG TABLET PO SCH (11:01)
[2021-12-22 11:37] VITALS: BP 130/47; O2SAT 97
[2021-12-22 12:15] VITALS: PULSE 81
== END 2021-12-22 02:00 | disposition home or self-care (01) | DRG 871 ==
LOC: EMEROOARM 12:50 → SUATTDRO 15:30 → ICNU 15:30 → 2NNU 12-17 15:54
PROVIDERS: ADMIT Internal Medicine; ATTEND Hospitalist

== ENCOUNTER 2022-01-04 15:43 | Inpatient (IN) ==
[2022-01-04] MEDS ORDERED: cefTRIAXone 1,000 MG in 0.9 % Sodium Chloride 10 ML IVP ONE (16:15)
[2022-01-04 17:10] LABS: Bilirubin,Urine Negative (Negative); Blood,Urine Negative (Negative); Clarity,Urine Clear (Clear); Color,Urine Light-Yellow (Yellow); Glucose,Urine (UA) Normal (Normal); Ketones,Urine Negative (Negative); Leukocyte Esterase,Urine Moderate (Negative); Nitrite,Urine Negative (Negative); Protein,Urine Trace mg/dL (Neg-Trace); Specific Gravity,Urine 1.009 (1.010-1.025); Urobilinogen,Urine Normal (Normal); WBC,Urine 15-30 per hpf (0-3)
[2022-01-04] MEDS ORDERED: Azithromycin 500 MG in 0.9 % Sodium Chloride 250 ML IVPB ONE (17:36)
[2022-01-04 17:38] LABS: Alanine Aminotransferase 14 Units/L (7-52); Albumin 3.5 g/dL (3.5-5.7); Alkaline Phosphatase 82 Units/L (34-104); Aspartate Amino Transferase 14 Units/L (13-39); BUN/Creatinine Ratio 17 (6-26); Bilirubin,Indirect 0.4 mg/dL (0.0-1.0); Bilirubin,Total 0.4 mg/dL (0.3-1.0); Blood Urea Nitrogen 49 mg/dL (8-23); Calcium 8.6 mg/dL (8.6-10.3); Carbon Dioxide 25 mEq/L (23-29); Chloride 98 mEq/L (98-107); Globulin 3.5 g/dL (2.4-3.5); Glucose 117 mg/dL (70-105); Osmolality,Calculated 292 (280-300); Potassium 4.3 mEq/L (3.5-5.1); Sodium 134 mEq/L (136-145); Troponin I < 0.03 ng/mL (< 0.04)
[2022-01-04] MEDS ORDERED: Ondansetron ODT 4 MG TAB.RAPDIS SL PRN (19:36)
[2022-01-04] MEDS ORDERED: Naloxone 0.4 MG/ML INJ IVP PRN (19:36)
[2022-01-04] MEDS ORDERED: Melatonin 3 MG TABLET PO PRN (19:36)
[2022-01-04] MEDS ORDERED: Aspirin 325 MG TABLET PO ONE (19:40)
[2022-01-04] MEDS ORDERED: Dextrose Gel 15 GM/37.5 ML TUBE PO PRN ×2 (20:15)
[2022-01-04] MEDS ORDERED: D5% in Water 1,000 ML IVC PRN (20:15)
[2022-01-04] MEDS ORDERED: *HR* Dextrose 50 % in Water (Syg) 50 ML SYRINGE IVP PRN (20:15)
[2022-01-04] MEDS: Insulin LISPRO 300 UNITS/3 ML VIAL SUBQ SCH (21:47)
[2022-01-05 02:42] LABS: Hematocrit 27.3 % (37.5-50.1); Mean Corpuscular Hemoglobin 23.9 pg (28.0-33.3); Mean Corpuscular Volume 72.4 fL (83.0-100.0); Mean Platelet Volume 9.3 fL (9.4-12.4); Platelet Count 675 K/mcL (140-400); Red Blood Count 3.77 M/mcL (4.19-5.50); Red Cell Distribution Width 20.7 % (11.5-14.5); White Blood Count 12.5 K/mcL (4.3-11.1)
[2022-01-05 02:43] LABS: Estimated Average Glucose 160 mg/dl; Hemoglobin A1C 7.2 %
[2022-01-05 03:03] LABS: INR 1.4; Prothrombin Time 15.4 Seconds (9.4-12.1)
[2022-01-05 03:25] LABS: Alanine Aminotransferase 13 Units/L (7-52); Albumin 3.2 g/dL (3.5-5.7); Alkaline Phosphatase 75 Units/L (34-104); Aspartate Amino Transferase 14 Units/L (13-39); BUN/Creatinine Ratio 17 (6-26); Bilirubin,Total 0.3 mg/dL (0.3-1.0); Blood Urea Nitrogen 44 mg/dL (8-23); Calcium 7.8 mg/dL (8.6-10.3); Carbon Dioxide 21 mEq/L (23-29); Chloride 100 mEq/L (98-107); Chol/HDL Ratio 4.4 (0-4.9); Cholesterol 119 mg/dL (< 200); Globulin 3.2 g/dL (2.4-3.5); Glucose 100 mg/dL (70-105); HDL Cholesterol 27 mg/dL (40-59); LDL Cholesterol,Calculated 67 mg/dL (< 100); Magnesium 0.9 mg/dL (1.6-2.6); Osmolality,Calculated 289 (280-300); Phosphorous 3.6 mg/dL (2.7-4.5); Potassium 3.8 mEq/L (3.5-5.1); Sodium 134 mEq/L (136-145); Total Protein 6.4 g/dL (6.4-8.9); Triglycerides 124 mg/dL (< 150); Troponin I < 0.03 ng/mL (< 0.04)
[2022-01-05 03:27] LABS: Folate 6.4 ng/mL (3.0-16.0)
[2022-01-05] MEDS: Insulin LISPRO 300 UNITS/3 ML VIAL SUBQ SCH ×4 (07:01→21:28)
[2022-01-05] MEDS: cefTRIAXone 1,000 MG in 0.9 % Sodium Chloride 10 ML IVP SCH (09:24)
[2022-01-05] MEDS: Aspirin Enteric Coated 81 MG Tablet PO SCH (09:24)
[2022-01-05] MEDS: Azithromycin 500 MG in 0.9 % Sodium Chloride 250 ML IVPB SCH (19:25)
[2022-01-06] MEDS: Insulin LISPRO 300 UNITS/3 ML VIAL SUBQ SCH ×4 (08:38→20:21)
[2022-01-06] MEDS: cefTRIAXone 1,000 MG in 0.9 % Sodium Chloride 10 ML IVP SCH (08:47)
[2022-01-06] MEDS: Aspirin Enteric Coated 81 MG Tablet PO SCH (08:47)
[2022-01-06] MEDS: Azithromycin 500 MG in 0.9 % Sodium Chloride 250 ML IVPB SCH (19:36)
[2022-01-07 02:17] LABS: Basophils # 0.1 K/mcL (0.0-0.2); Basophils % 0.8 %; Eosinophils # 0.2 K/mcL (0.0-0.6); Eosinophils % 1.6 %; Hematocrit 30.5 % (37.5-50.1); Hemoglobin 9.8 g/dL (12.9-16.9); Immature Granulocytes % 0.7 % (0-4); Lymphocytes # 2.6 K/mcL (0.6-4.6); Lymphocytes % 18.2 %; Mean Corpuscular HGB Conc 32.1 g/dL (31.6-35.5); Mean Corpuscular Hemoglobin 23.6 pg (28.0-33.3); Mean Corpuscular Volume 73.3 fL (83.0-100.0); Monocytes # 1.4 K/mcL (0.0-1.3); Monocytes % 10.2 %; Neutrophils # 9.6 K/mcL (1.6-8.9); Platelet Count 544 K/mcL (140-400); Red Blood Count 4.16 M/mcL (4.19-5.50); Red Cell Distribution Width 20.6 % (11.5-14.5); Segmented Neutrophils % 68.5 %; White Blood Count 14.1 K/mcL (4.3-11.1)
[2022-01-07 02:42] LABS: Calcium 7.9 mg/dL (8.6-10.3); Potassium 3.8 mEq/L (3.5-5.1)
[2022-01-07] MEDS ORDERED: Acetaminophen 325 MG TABLET PO ONE (06:09)
[2022-01-07] MEDS: Insulin LISPRO 300 UNITS/3 ML VIAL SUBQ SCH (08:48)
[2022-01-07] MEDS: cefTRIAXone 1,000 MG in 0.9 % Sodium Chloride 10 ML IVP SCH (08:48)
[2022-01-07] MEDS: Aspirin Enteric Coated 81 MG Tablet PO SCH (08:49)
[2022-01-07 11:42] VITALS: BP 145/73; PULSE 82; TEMP 98; O2SAT 94
== END 2022-01-07 13:40 | disposition home or self-care (01) | DRG 193 ==
LOC: EMEROOARM 15:43 → 3ANU 15:43 → SUATTDRO 19:40 → 3ANU 20:30
PROVIDERS: ADMIT Internal Medicine; ATTEND Nurse Practitioner